=== PATIENT | male | born 1950 | race Caucasian/White ===

== ENCOUNTER 2017-03-05 18:18 | Inpatient (IN) | payer MEDICARE, MEDICAID ==
[~2017-03-05] VITALS: Ht 172.7 cm; Wt 117.9 kg
--- NOTE | 2017-03-05 18:40 | NUR ---
PT BIB FROM [facility] FOR AMS SINCE THIS AM. NOTED LETHARGIC. SON AT BS AND NOTED PT "GOES IN AND OUT"/SYNCOPE. MD AT BS FOR EVAL. VSS. SAFETY AND COMFORT MEASURES PROVIDED. IV ACCESS BULK PIGMENT REDUCER. SAFETY AND COMFORT MEASURES PROVIDED. WILL MONITOR.
--- NOTE | 2017-03-05 18:57 | NUR ---
ct called for stat ct, spoke with Deepali
[2017-03-05 19:02] LABS: BASOPHILS % (AUTO) 0.2 % (0.0-2.0); EOSINOPHILS # (AUTO) 0.2 /CMM (0.0-0.7); EOSINOPHILS % (AUTO) 2.1 % (0.0-6.0); HEMATOCRIT 27 % (39-51); HEMOGLOBIN 8.5 g/dL (13.5-17.5); LYMPHOCYTES # (AUTO) 0.8 /CMM (0.8-4.8); LYMPHOCYTES % (AUTO) 8.5 % (20.0-44.0); MEAN CORPUSCULAR HEMOGLOBIN 30 PG (26.0-33.0); MEAN CORPUSCULAR HGB CONC 32 g/dl (31.0-36.0); MEAN CORPUSCULAR VOLUME 94 fL (80-96); MONOCYTES # (AUTO) 0.3 /CMM (0.1-1.30); MONOCYTES % (AUTO) 3.5 % (2.0-12.0); NEUTROPHILS # (AUTO) 7.8 /CMM (1.8-8.9); NEUTROPHILS % (AUTO) 85.7 % (43.0-81.0); PLATELET COUNT (AUTO) 201 /CMM (150-450); RDW COEFFICIENT OF VARIATION 19.3 (11.5-15.0); RED BLOOD CELL COUNT(AUTO) 2.83 MIL/uL (4.5-6.0); WHITE BLOOD COUNT (AUTO) 9.1 K/uL (4.3-11.0)
[2017-03-05 19:18] LABS: INR 1.37 (0.87-1.13); PROTHROMBIN TIME 14.9 SECS (9.5-12.7)
[2017-03-05 19:21] LABS: ACETAMINOPHEN 7 ug/ml (10-30); ALCOHOL, BLOOD < 3 mg/dL (0-0); ASPARTATE AMINOTRANSFERASE 2 U/L (15-37); UREA NITROGEN, BLOOD 1 mg/dL (7-18)
[2017-03-05 19:23] LABS: TROPONIN I 0.034 ng/mL (0.00-0.056)
--- NOTE | 2017-03-05 19:23 | NUR ---
PT REPORT RECIVED FROM JENNIFER LOPEZ, PT IN BED JUST GOT BACK FROM CT, PT ON MONITOR, WILL CONTINUE TO MONITOR.
[2017-03-05 19:52] LABS: ALANINE AMINOTRANSFERASE 27 U/L (12-78); ALKALINE PHOSPHATASE 70 U/L (46-116); BILIRUBIN,DIRECT 0.1 mg/dL (0.0-0.2); BILIRUBIN,TOTAL 0.4 mg/dL (0.2-1.0); CALCIUM, SERUM 8.5 mg/dL (8.5-10.1); CARBON DIOXIDE 31 mmol/L (21-32); CHLORIDE 104 mmol/L (98-107); CREATININE 4.2 mg/dL (0.6-1.3); GLUCOSE 174 mg/dL (74-106); POTASSIUM 5.3 mmol/L (3.5-5.1); SODIUM SERUM 141 mmol/L (136-145); TOTAL PROTEIN, SERUM 7.3 g/dL (6.4-8.2)
[2017-03-05 19:53] LABS: SALICYLATE 2.3 mg/dL (2.8-20.0)
--- NOTE | 2017-03-05 20:07 | NUR ---
REPORT GIVEN TO BATSHEVA. AWAITING OK FROM DR. DAWSON TO TRANSFER TO FLOOR.
[2017-03-05] MEDS ORDERED: FUROSEMIDE 40 MG/4 ML VIAL IV ONE (20:30)
[2017-03-05] MEDS ORDERED: FUROSEMIDE 40 MG/4 ML VIAL ONE (20:59)
[2017-03-05] MEDS ORDERED: FUROSEMIDE 20 MG/2 ML VIAL IV SCH (21:00)
[2017-03-05] MEDS ORDERED: MAG HYDROX/AL HYDROX/SIMETH 30 ML UDC PO PRN (21:00)
[2017-03-05] MEDS ORDERED: HYDROCODONE/APAP 5/325MG 1 EACH TABLET PO PRN (21:00)
[2017-03-05] MEDS ORDERED: MAGNESIUM HYDROXIDE 30 ML UDC PO PRN (21:00)
[2017-03-05] MEDS ORDERED: ACETAMINOPHEN 325 MG TABLET PO PRN (21:00)
[2017-03-05] MEDS ORDERED: ONDANSETRON HCL/PF 4 MG/2 ML VIAL IVP PRN (21:00)
[2017-03-05 21:06] LABS: ABG OXYGEN SATURATION 98.4 % (92.0-98.5); ABG PCO2 61.3 mmHg (35.0-45.0); ABG PH 7.347 (7.350-7.450); ABG PO2 157.1 mmHg (75.0-100.0); AaDO2 57.6 mmHg; COHb 0.7 % (0.5-1.5); MetHb 0.4 % (0.0-1.5); O2Hb 97.3 % (94.0-97.0); SITE, ABG Left Radial
--- NOTE | 2017-03-05 21:06 | NUR ---
CALLED NURSING STAFF SCIENTIST TO UPGRADE TO JODY
--- NOTE | 2017-03-05 21:06 | NUR ---
PT IN BED, RT AT BEDSIDE TO DRAW ABG, PT HAS SWELLING AROUND HIS PENIS AND MD MADE AWARE, MD STATES DO NOT CHANGE OUT THE MALIK THEN AND DO NOT SEND URINE BECAUSE IT WILL BE DIRTY, WILL CONTINUE TO MONITOR.
[2017-03-05 22:00] VITALS: BP 98/61
[2017-03-06] VITALS: BP 94/64
[2017-03-06] MEDS ORDERED: BUMETANIDE INJ 2 MG in IV NS 0.9% 32 ML IV ONE (00:30)
[2017-03-06] MEDS ORDERED: BUMETANIDE INJ 0.25 MG/ML VIAL ONE (01:34)
--- NOTE | 2017-03-06 02:58 | NUR ---
RN NOTES ADMINISTERED BUMEX 1MG/4ML 2MG IN IV. NO ADVERSE EFFECT NOTED.
[2017-03-06 04:00] VITALS: BP 98/58
--- NOTE | 2017-03-06 05:00 | NUR ---
RN NOTES NOTED WITH VERY MINIMAL URINE OUTPUT IN THE BAG, FLUSHED FC WITH 60ML NS, URINE DRAINED 2000ML. NO PHYSICAL MANIFESTATION OF PAIN NOTED. WILL CONTINUE TO MONITOR.
--- NOTE | 2017-03-06 06:28 | NUR ---
RN CLOSING NOTES PATIENT COMFORTABLY SLEEPING IN BED, NO DISTRESS NOTED. MALIK CATH DRAINING URINE. NO PHYSICAL MANIFESTATION OF PAIN OR DISCOMFORT. WILL ENDORSE TO AM SHIFT FOR CONTINUITY OF CARE
[2017-03-06 07:31] LABS: BASOPHILS % (AUTO) 0.3 % (0.0-2.0); EOSINOPHILS # (AUTO) 0.5 /CMM (0.0-0.7); EOSINOPHILS % (AUTO) 3.8 % (0.0-6.0); HEMATOCRIT 27 % (39-51); HEMOGLOBIN 8.6 g/dL (13.5-17.5); LYMPHOCYTES # (AUTO) 0.8 /CMM (0.8-4.8); LYMPHOCYTES % (AUTO) 6.4 % (20.0-44.0); MEAN CORPUSCULAR HEMOGLOBIN 30 PG (26.0-33.0); MEAN CORPUSCULAR HGB CONC 32 g/dl (31.0-36.0); MEAN CORPUSCULAR VOLUME 95 fL (80-96); MONOCYTES # (AUTO) 0.8 /CMM (0.1-1.30); MONOCYTES % (AUTO) 6.6 % (2.0-12.0); NEUTROPHILS % (AUTO) 82.9 % (43.0-81.0); PLATELET COUNT (AUTO) 158 /CMM (150-450); RDW COEFFICIENT OF VARIATION 20.9 (11.5-15.0); RED BLOOD CELL COUNT(AUTO) 2.85 MIL/uL (4.5-6.0)
[2017-03-06 07:32] LABS: CREATININE 4.4 mg/dL (0.6-1.3); MAGNESIUM 1.8 mg/dL (1.8-2.4); POTASSIUM 5.9 mmol/L (3.5-5.1)
[2017-03-06 08:00] VITALS: BP 90/54
--- NOTE | 2017-03-06 08:00 | NUR ---
JODY/RN: INITIAL NOTES,AM RECEIVED REPORT FROM NIGHT NURSE. PT DROWSY, AWAKENS EASILY. ON SIMPLE MASK, TOLERATING WELL, NO ACUTE DISTRESS NOTED AT THIS TIME. PT ON TELE, SINUS. MALIK CATH IN PLACE, DRAINING URINE, CLOUDY. LEFT FA PIV PATENT AND INTACT, NO S/S OF INFECTION OR INFILTRATION NOTED. AWAITING FOR WOUND, DIETARY AND RENAL CONSULT. ALL NEEDS WILL BE MET, SAFETY MEASURES TAKEN, BED IN LOW POSITION, SIDE RAILS UP, CALL LIGHT WITHIN REACH. WILL CONTINUE CARE
[2017-03-06 08:27] LABS: PHOSPHORUS 8.5 mg/dL (2.5-4.9)
--- NOTE | 2017-03-06 08:27 | NUR ---
JODY/RN: CRITICAL LAB RECEIVED FOR PHOS 8.5. NOTIFIED, NO NEW ORDERS
[2017-03-06] MEDS: FUROSEMIDE 40 MG/4 ML VIAL IV SCH (08:55)
[2017-03-06] MEDS ORDERED: EPOETIN ALFA (10,000 UNIT) 10,000 UNIT/ML VIAL SQ ONE (10:00)
[2017-03-06] MEDS ORDERED: SODIUM POLYSTYRENE SULFONATE 15 G/60 ML BOTTLE PO ONE (10:00)
--- NOTE | 2017-03-06 10:30 | NUR ---
JODY/RN: AT BEDSIDE FOR EVAL. NEW ORDERS RECEIVED WILL FOLLOW THROUGH.
[2017-03-06] MEDS ORDERED: LIRA0.6P SQ (11:12)
[2017-03-06] MEDS ORDERED: HYDR-3024 PO (11:12)
[2017-03-06] MEDS ORDERED: NA P133E RC (11:12)
[2017-03-06] MEDS ORDERED: CALC-746 PO (11:12)
[2017-03-06] MEDS ORDERED: PANT40TA2 PO (11:12)
[2017-03-06] MEDS ORDERED: ALEN70TA45 PO (11:12)
[2017-03-06] MEDS ORDERED: ACET-73 PO (11:12)
[2017-03-06] MEDS ORDERED: ALBU90AE IH (11:12)
[2017-03-06] MEDS ORDERED: HYDR-552 PO (11:12)
[2017-03-06] MEDS ORDERED: CARV12.5 PO (11:12)
[2017-03-06] MEDS ORDERED: LACT1CAP89 PO (11:12)
[2017-03-06] MEDS ORDERED: MULT-213 PO (11:12)
[2017-03-06] MEDS ORDERED: ARGI1POW13 PO (11:12)
[2017-03-06] MEDS ORDERED: DIPH25CA83 PO (11:12)
[2017-03-06] MEDS ORDERED: FESO4TAB PO (11:12)
[2017-03-06] MEDS ORDERED: NIAC1000 PO (11:12)
[2017-03-06] MEDS ORDERED: RIVA10TA PO (11:12)
[2017-03-06] MEDS ORDERED: ZINC220C6 PO (11:12)
[2017-03-06] MEDS ORDERED: SIMV20TA6 PO (11:12)
[2017-03-06] MEDS ORDERED: CRAN450C PO (11:12)
[2017-03-06] MEDS ORDERED: ALLO100T PO (11:12)
[2017-03-06] MEDS ORDERED: TERA10CA4 PO (11:12)
[2017-03-06] MEDS ORDERED: BUME1TAB4 PO (11:12)
[2017-03-06] MEDS ORDERED: LOSA25TA13 PO (11:12)
[2017-03-06] MEDS ORDERED: MAGN400O6 PO (11:12)
[2017-03-06] MEDS ORDERED: ASPI-991 PO (11:12)
[2017-03-06] MEDS ORDERED: BISA10SU8 RC (11:12)
[2017-03-06] MEDS ORDERED: POLY17PO4 PO (11:12)
[2017-03-06] MEDS ORDERED: INSU100V3 SQ (11:15)
[2017-03-06] MEDS: IV 1/2NS 1000 ML 1,000 ML IV PRN (11:36)
[2017-03-06 12:00] VITALS: BP 92/59
--- NOTE | 2017-03-06 12:35 | NUR ---
WOUND CARE CONSULT PATIENT SEEN AND SKIN INTEGRITY ASSESSMENT DONE. SEE CRAFT SUPERINTENDENT ASSESSMENT IN [facility] FOR TODAY ALONG WITH ALL RECOMMENDATIONS. MD IN AGREEMENT WITH TREATMENT PLANS. PATIENT WITH DONNA AT 14, IS ABLE TO ASSIST WITH TURNING AND REPOSITIONING, HOWEVER DOES NEED ASSIST. RECOMMEND TURNING SCHED Q 2 HOURS PATIENT CONDITION PERMITS. RECOMMEND SARKIS MAX 2 BED WITH ETS AIR FOR SKIN MANAGEMENT AND TREATMENT. PT 2T 273 LBS. RECOMMEND BILATERAL HEEL FLOATING. PATIENT NOTED TO HAVE 3+ PITTING EDEMA TO BILATERAL LOWER EXTREMITIES AND SCROTAL REGION. PATIENT ALSO NOTED TO HAVE REDNESS AND FOUL ODOR TO THE FUNGAL RASHES TO THE BUTTOCKS,GROIN/ABDOMINAL AND BUTTOCKS REGIONS. ALL SKIN MANAGMENT AND TREATMENT PLANS DISCUSSED WITH NURSING AT THE BEDSIDE. ALL PRESSURE ULCER PREVENTION MEASURES NOTED TO BE IN PLACE PER CAREPLAN. CONTINUE USE OF Z GUARD CURRENTLY ORDERED. Addendum: 03/06/17 at 1240 by VIKAS COX WNDNU Amended: Links added.
--- NOTE | 2017-03-06 12:45 | NUR ---
JODY/RN: WOUND RN AT BEDSIDE. PT ASSESSED. MD ORDERS RECEIVED FOR WOUND CARE. WILL CONTINUE TO TURN AND REPOSITION Q 2 HOURS AND NEEDED.
[2017-03-06 12:51] LABS: CREATININE, URINE 44.2 MG/DL (30.0-125.0); URINE TOTAL PROTEIN 312.1 mg/dL (0-11.9)
[2017-03-06 16:00] VITALS: BP 91/55
[2017-03-06] MEDS: CLOTRIMAZOLE/BETAMETASONE DIPROPIONATE 15 GM TUBE TP SCH (16:44)
--- NOTE | 2017-03-06 18:20 | NUR ---
JODY/RN: JUST RECEIVED BERIMAX BED, WILL ENDORSE TO NIGHT NURSE TO PLACE PT ON BED FOR SKIN PROTECTION AND COMFORT
--- NOTE | 2017-03-06 19:10 | NUR ---
JODY/RN ENDING NOTES,AM REPORT WILL BE ENDORSED TO NIGHT NURSE FOR CONTINUATION OF CARE. PT ON NASAL CANULA, NO DISTRESS NOTED. PT CONTROLLED A.FIB ON TELE. WILL ENDORSE TO NIGHT NURSE TO PLACE PT ON BERIMAX BED DUE TO LATE DELIVERY. ALL NEEDS MET. SAFETY MEASURES TAKEN, WILL CONTINUE CARE. VSS
--- NOTE | 2017-03-06 19:40 | NUR ---
RN NOTES PT IS AWAKE ALERT ORIENTED X 2 WITH PERIODS OF CONFUSION RESPONSIVE TO TACTILE AND VERBAL STIMULI. WITH O2 2LPM VIA NC NO ACUTE RESP DISTRESS. SATING 100% REMAINED A-FIB HR 82 ON TELE MONITOR. IV SITE ON LFA G 20 INTACT AND PATENT STARTED TO RUN 1/2 NS @ 55 CC/HR NO INFILTRATION SHOWS. F/C DRAINED WITH RUBY COLOR URINE. TRANSFERRED PT TO BARIATRIC BED. KEPT PT CLEAN AND COMFORTABLE IN BED. WILL FREQ. MONITORED.
[2017-03-06 20:00] VITALS: BP 93/64
[2017-03-07] VITALS: BP 97/59
[2017-03-07 04:00] VITALS: BP 107/71
--- NOTE | 2017-03-07 07:05 | NUR ---
RN NOTES PT REMAINED IN STABLE CONDITION THROUGHOUT THE SHIFT,. MOPRE ALERT AND RESPONSIVE TODAY. COMPLIANT WITH CARE DENIES PAIN. NO ACUTE RESP DISTRESS. AFEBRILE. NO ASE FROM IV ATB. WITH ONGOING IVF TOLERATED WELL. KEPT PT CLEAN AND DRY. ENDORSED CONTINUITY OF CARE TO AM NURSE.
[2017-03-07 07:18] LABS: EOSINOPHILS # (AUTO) 0.3 /CMM (0.0-0.7); EOSINOPHILS % (AUTO) 2.8 % (0.0-6.0); HEMATOCRIT 27 % (39-51); HEMOGLOBIN 8.7 g/dL (13.5-17.5); LYMPHOCYTES # (AUTO) 0.7 /CMM (0.8-4.8); LYMPHOCYTES % (AUTO) 6.8 % (20.0-44.0); MEAN CORPUSCULAR HEMOGLOBIN 31 PG (26.0-33.0); MEAN CORPUSCULAR HGB CONC 32 g/dl (31.0-36.0); MEAN CORPUSCULAR VOLUME 96 fL (80-96); MONOCYTES # (AUTO) 0.5 /CMM (0.1-1.30); MONOCYTES % (AUTO) 5.3 % (2.0-12.0); NEUTROPHILS # (AUTO) 8.4 /CMM (1.8-8.9); NEUTROPHILS % (AUTO) 85.1 % (43.0-81.0); PLATELET COUNT (AUTO) 183 /CMM (150-450); RDW COEFFICIENT OF VARIATION 20.3 (11.5-15.0); RED BLOOD CELL COUNT(AUTO) 2.82 MIL/uL (4.5-6.0); WHITE BLOOD COUNT (AUTO) 9.9 K/uL (4.3-11.0)
--- NOTE | 2017-03-07 07:30 | NUR ---
JODY RN NOTE: RECEIVED PATIENT A&OX3. PT ON O2 2L VIA NC WITH NO RESPIRATORY DISTRESS OR SOB NOTED. LFA G 20 PATENT AND INTACT. ON TELE AFIB HR 89. DENIES PAIN. PITTING EDEMA ON LOWER BLE LEFT FOOT +3, RIGHT FOOT +4. FC DRAINING TO GRAVITY WITH YELLOW URINE. SPECIALTY MATTRESS NOTED. CARE PLAN REVIEWED WITH PATIENT. BED LOW, LOCKED WITH CALL LIGHT WITHIN REACH. ALL NEEDS MET AND ANTICIPATED. WILL CONT TO MONITOR
[2017-03-07 07:45] LABS: IRON, SERUM 40 ug/dl (50-175); TOTAL IRON BINDING CAPACITY 206 ug/dl (250-450)
[2017-03-07 07:46] LABS: ALBUMIN 1.9 g/dL (3.4-5.0); BILIRUBIN,TOTAL 0.4 mg/dL (0.2-1.0); CALCIUM, SERUM 7.8 mg/dL (8.5-10.1); CREATININE 4.7 mg/dL (0.6-1.3); MAGNESIUM 1.8 mg/dL (1.8-2.4)
[2017-03-07 07:49] LABS: PHOSPHORUS 8.1 mg/dL (2.5-4.9)
[2017-03-07 08:00] VITALS: BP 114/70
--- NOTE | 2017-03-07 09:15 | NUR ---
JODY RN NOTE: PT HELD DUE TO AWAITING DUPLEX VENOUS BLE.
[2017-03-07] MEDS: FUROSEMIDE 40 MG/4 ML VIAL IV SCH (09:56)
[2017-03-07] MEDS: HYDROGEL DRESSING 90 GM TUBE TP SCH (09:56)
[2017-03-07] MEDS: CLOTRIMAZOLE/BETAMETASONE DIPROPIONATE 15 GM TUBE TP SCH ×2 (09:58→16:55)
--- NOTE | 2017-03-07 10:55 | NUR ---
RN NOTES SPOKE WITH DR CERVANTES, PT UPDATES GIVEN, PER MD PT WILL POSSIBLY START ON HD PER NEPHRO. CLARIFIED WITH MD IF TO CONT IVF, NO DC ORDER GIVEN FOR NOW. LASIX DC'D PER MD ORDER. PENDING BLE VENOUS DOPPLER. WILL MONITOR PT
[2017-03-07 12:00] VITALS: BP 102/69
[2017-03-07 16:00] VITALS: BP 123/67
[2017-03-07] MEDS: IV 1/2NS 1000 ML 1,000 ML IV PRN (16:55)
--- NOTE | 2017-03-07 19:10 | NUR ---
RN NOTES PT RESTING IN BED COMFORTABLY, NO ACUTE CHANGE IN CONDITION. DENIES PAIN AT THIS TIME. ALL DUE MEDS GIVEN, NEEDS ATTENDED. KEPT PT CLEAN DRY AND COMFORTABLE. REPOSITIONED FOR COMFORT. MONITORED ACCORDINGLY ENDORSED TO NOC RN FOR CONTINUITY OF CARE
--- NOTE | 2017-03-07 19:40 | NUR ---
RN NOTES PT IS AWAKE ALERT ORIENTED X 2 - 3 WITH PERIODS OF CONFUSION RESPONSIVE TO TACTILE AND VERBAL STIMULI. WITH O2 2LPM VIA NC NO ACUTE RESP DISTRESS. SATING 100%, A-FIB WITH PVC'S WITH HR 85 ON TELE MONITOR. DENIES PAIN. IV SITE ON LFA G 20 INTACT AND PATENT RUN 1/2 NS @ 55 CC/HR NO INFILTRATION SHOWS. F/C DRAINED WITH RUBY COLOR URINE WITH A LITTLE BLOOD DUE TO PT IS ACCIDENTALLY PULLING OR TOUCHING HIS CATHETER, KEPT PT CLEAN AND COMFORTABLE IN BED. WILL CONTINUE TO MONITOR.
[2017-03-07 20:00] VITALS: BP 98/65
[2017-03-08] VITALS: BP 117/79
[2017-03-08 04:00] VITALS: BP 121/74
--- NOTE | 2017-03-08 06:59 | NUR ---
RN NOTES PT ASLEEP WELL NO SOB NOTED.REMAINED AOX 3. AFEBRILE. F/C INTACT AND PATENT DENIES PAIN. ALL DUE MEDICINE GIVEN IVF ONGOING. NO SIGNIFICANT CHANGE OF CONDITION. WILL ENDORSE CONTINUITY OF CARE.
[2017-03-08 07:14] LABS: EOSINOPHILS # (AUTO) 0.1 /CMM (0.0-0.7); EOSINOPHILS % (AUTO) 1.6 % (0.0-6.0); HEMATOCRIT 26 % (39-51); HEMOGLOBIN 8.4 g/dL (13.5-17.5); LYMPHOCYTES # (AUTO) 0.7 /CMM (0.8-4.8); MEAN CORPUSCULAR HEMOGLOBIN 31 PG (26.0-33.0); MEAN CORPUSCULAR HGB CONC 33 g/dl (31.0-36.0); MEAN CORPUSCULAR VOLUME 95 fL (80-96); MONOCYTES # (AUTO) 0.4 /CMM (0.1-1.30); MONOCYTES % (AUTO) 4.4 % (2.0-12.0); NEUTROPHILS # (AUTO) 7.3 /CMM (1.8-8.9); PLATELET COUNT (AUTO) 188 /CMM (150-450); RDW COEFFICIENT OF VARIATION 20.2 (11.5-15.0); RED BLOOD CELL COUNT(AUTO) 2.73 MIL/uL (4.5-6.0); WHITE BLOOD COUNT (AUTO) 8.5 K/uL (4.3-11.0)
--- NOTE | 2017-03-08 07:43 | NUR ---
RN NOTES PT RESTING COMFORTABLY IN BED A/O X2-3. ON 3 L NASAL CANNULA NO SOB NOTED. A FIB ON THE MONITOR HR 92. LFA IV SITE GAUGE 20 DRY AND INTACT. 1/2NS RUNNING AT 75ML/HR. MALIK OUTPUT LESS THAN 200ML, HEMATURIA NOTED. SIDE RAILS UPX3, BED LOCKED AND IN LOWEST POSITION, CALL LIGHT WITHIN REACH. WILL CONT TO MONITOR.
[2017-03-08 07:56] LABS: CALCIUM, SERUM 6.9 mg/dL (8.5-10.1); CREATININE 4.7 mg/dL (0.6-1.3); MAGNESIUM 1.6 mg/dL (1.8-2.4); PHOSPHORUS 7.8 mg/dL (2.5-4.9); POTASSIUM 4.2 mmol/L (3.5-5.1)
[2017-03-08 08:00] VITALS: BP 125/67
[2017-03-08] MEDS: CLOTRIMAZOLE/BETAMETASONE DIPROPIONATE 15 GM TUBE TP SCH ×2 (08:46→16:55)
[2017-03-08] MEDS: HYDROGEL DRESSING 90 GM TUBE TP PRN (08:47)
[2017-03-08] MEDS: HYDROGEL DRESSING 90 GM TUBE TP SCH (09:41)
[2017-03-08 12:00] VITALS: BP 121/74
[2017-03-08] MEDS ORDERED: BISACODYL SUPP (10 MG) 10 MG/SUPP.RECT SUPP.RECT RC PRN (13:00)
--- NOTE | 2017-03-08 13:00 | NUR ---
RN NOTES SPOKE WITH DR KUHN, CURRENT EVENTS REPORTED. PT UPDATE GIVEN, WITH HEMATURIA EPISODE, PENDING DIALYSIS CATH PLACEMENT PER NEPHRO. REPORTED MAG 1.6, NO NEW ORDERS GIVEN AT THIS TIME.
[2017-03-08 16:00] VITALS: BP 126/79
[2017-03-08] MEDS ORDERED: BUMETANIDE INJ 4 MG in IV D5W 24 ML IV ONE (16:00)
--- NOTE | 2017-03-08 16:00 | NUR ---
RN NOTES FC NOTED WITH HEMATURIA STILL, FC IRRIGATED, NOTED URINE STILL NOTED WITH HEMATURIA BUT ARBORIST REPRESENTATIVE COMPARED THIS MORNING.
--- NOTE | 2017-03-08 16:25 | NUR ---
RN NOTES RECEIVED REPORT FROM RN. PATIENT IS IN BED, ALERT AND ORIENTED X3. IV SITE IS LEAKING. MALIK IS DRAINING BLOOD. WILL CONTINUE TO MONITOR AND ASSESS PATIENT
[2017-03-08] MEDS ORDERED: BUMETANIDE INJ 4 MG in IV NS 0.9% 50 ML IV ONE (16:36)
[2017-03-08] MEDS ORDERED: BUMETANIDE INJ 4 MG in IV NS 0.9% 24 ML IV ONE (16:41)
[2017-03-08] MEDS: CARVEDILOL 12.5 MG TABLET PO SCH (16:55)
--- NOTE | 2017-03-08 17:15 | NUR ---
NEW IV STARTED. LEFT WRIST 22G. PATIENT TOLERATED PROCEDURE WELL
--- NOTE | 2017-03-08 18:34 | NUR ---
RN CLOSING NOTES PATIENT IS IN BED AWAKE ALERT AND ORIENTED TO NAME, PLACE AND TIME. PATIENT IS UNABLE AMBULATORY AND IN BED REST. 3LNC AND 100% OXYGEN SATURATION. NO SIGNS AND SYMPTOMS OF DISTRESS. DENIED PAIN. NEW IV SITE INSERTED, IV SITE IS INTACT AND PATENT; NO SIGNS AND SYMPTOMS OF REDNESS OR INFLAMMATION. OLD IV REMOVED. IV SITE CURRENTLY INFUSING 5,L/HR BUMEX. BED IN LOW POSITION, LOCKED AND TWO SIDE RAILS ARE UP. PATIENT KEPT CLEAN AND DRY AND ALL NURSING CARE ANTICIPATED. PATIENT REMAINED SAFE WITH NO CHANGE OF CONDITION. WILL ENDORSE TO PLASMA CENTER TECHNICIAN NURSE.
--- NOTE | 2017-03-08 19:30 | NUR ---
RN NOTES: -RECEIVED PATIENT LYING COMFORTABLY IN BED IN BED IN SEMI FOWLERS POSITION,ON 02 AT 3L/MIN, IV CANNULA; INTACT ON LH G#22,STILL WITH HEMATURIA, MALIK CATH DRAINING WELL,FALL, SAFETY AND ASPIRATION PRECAUTION OBSERVE, CALL LIGHT WITHIN EASY REACH,SIDE RAILS UPX3,BUMEX ONGOING AT 5ML/HR,CALL LIGHT WITHIN EASY REACH.
[2017-03-08 20:00] VITALS: BP 105/60
--- NOTE | 2017-03-08 20:12 | NUR ---
RN NOTES; DOPPLER/MAPPING OF BLE DONE BY SAM, PATIENT WAS COOPERATIVE.AWAITING FOR THE RESULT.
--- NOTE | 2017-03-08 21:00 | NUR ---
RN NOTES: TURNING AND REPOSITIONING DONE, CLEAN AND CHANGE, KEPT COMFORTABLE IN BED, CALL LIGHT WITHIN EASY REACH.
[2017-03-08] MEDS: SIMVASTATIN 20 MG TABLET PO SCH (22:35)
--- NOTE | 2017-03-08 22:52 | NUR ---
RN NOTES: ASLEEP AT SHORT INTERVAL, KEPT ON CLOSE WATCH,ON TELE MONITOR A.FIB-RATE:85-86,NO SIGN OF RESPIRATORY DISTRESS NOTED.
[2017-03-09] VITALS: BP 104/73
[2017-03-09 04:00] VITALS: BP 121/78
--- NOTE | 2017-03-09 06:49 | NUR ---
RN NOTES: DIAPER CHANGE, POSITION CHANGE,NO PAIN OR DISCOMFORT NOTED, ORIENTED TO UNIT AND STAFF, HE HAS PERIODS OF CONFUSION AND FORCEFULNESS,ON MONITOR A.FIB WITH PVC RATE=98, KEEP ON CLOSE WATCH, HIGH RISK FOR FALL, ENDORSED TO NEXT SHIFT FOR CONTINUITY OF CARE, CALL LIGHT WITHIN EASY REACH.
--- NOTE | 2017-03-09 07:28 | NUR ---
RN INITIAL NOTE REPORT RECEIVED FROM JEY PM SHIFT FOR STACY. PT NC 3L. TELE AFIB, PVC 93. A/O X2. FC INTACT. L WRIST #22 G PATENT, FLUSHED AND INTACT. WILL CONTINUE TO MONITOR CLOSELY. ALL SAFETY MEASURES IN PLACE.
[2017-03-09 07:37] LABS: BASOPHILS % (AUTO) 0.5 % (0.0-2.0); EOSINOPHILS # (AUTO) 0.9 /CMM (0.0-0.7); EOSINOPHILS % (AUTO) 10.4 % (0.0-6.0); HEMATOCRIT 26 % (39-51); HEMOGLOBIN 8.5 g/dL (13.5-17.5); LYMPHOCYTES # (AUTO) 0.9 /CMM (0.8-4.8); LYMPHOCYTES % (AUTO) 10.2 % (20.0-44.0); MEAN CORPUSCULAR HEMOGLOBIN 31 PG (26.0-33.0); MEAN CORPUSCULAR HGB CONC 33 g/dl (31.0-36.0); MEAN CORPUSCULAR VOLUME 95 fL (80-96); MONOCYTES # (AUTO) 0.6 /CMM (0.1-1.30); MONOCYTES % (AUTO) 6.9 % (2.0-12.0); NEUTROPHILS # (AUTO) 6.2 /CMM (1.8-8.9); PLATELET COUNT (AUTO) 211 /CMM (150-450); RDW COEFFICIENT OF VARIATION 21.2 (11.5-15.0); RED BLOOD CELL COUNT(AUTO) 2.75 MIL/uL (4.5-6.0); WHITE BLOOD COUNT (AUTO) 8.6 K/uL (4.3-11.0)
[2017-03-09 07:48] LABS: ALBUMIN 2.1 g/dL (3.4-5.0); BILIRUBIN,TOTAL 0.3 mg/dL (0.2-1.0); CALCIUM, SERUM 7.2 mg/dL (8.5-10.1); CREATININE 4.7 mg/dL (0.6-1.3); MAGNESIUM 1.6 mg/dL (1.8-2.4); PHOSPHORUS 7.6 mg/dL (2.5-4.9); POTASSIUM 3.9 mmol/L (3.5-5.1); TOTAL PROTEIN, SERUM 7.1 g/dL (6.4-8.2)
[2017-03-09 08:00] VITALS: BP 94/53
[2017-03-09] MEDS: ASPIRIN EC 81 MG TABLET.DR PO SCH (08:54)
[2017-03-09] MEDS: ZINC SULFATE 220 MG CAPSULE PO SCH (08:54)
[2017-03-09] MEDS: Z GUARD REMEDY 2 OZ OINT TP PRN (08:56)
[2017-03-09] MEDS: CLOTRIMAZOLE/BETAMETASONE DIPROPIONATE 15 GM TUBE TP SCH ×2 (08:56→17:37)
[2017-03-09] MEDS: HYDROGEL DRESSING 90 GM TUBE TP PRN (08:56)
[2017-03-09] MEDS: CARVEDILOL 12.5 MG TABLET PO SCH ×2 (08:57→17:36)
[2017-03-09] MEDS: HYDROGEL DRESSING 90 GM TUBE TP SCH (09:00)
[2017-03-09 12:00] VITALS: BP 114/63
[2017-03-09 16:00] VITALS: BP_SYST 107; BP_DIAS 70; BP_DIAS 71
--- NOTE | 2017-03-09 19:35 | NUR ---
RN CLOSING NOTE REPORT GIVEN TO MILAN RN PM SHIFT FOR STACY. PT NC 3L. TELE AFIB, PVC THROUGH SHIFT. A/O X2. FC INTACT. L WRIST #22 G PATENT AND INTACT. ALL SAFETY MEASURES IN PLACE. AWAITING IF PT WILL START HD TOMORROW.
[2017-03-09 20:00] VITALS: BP 121/83
--- NOTE | 2017-03-09 20:00 | NUR ---
RN NOTES RECEIVED PATIENT AWAKE IN BED WITH NO RESPIRATORY DISTRESS OR SHORTNESS OF BREATH. BREATHING EVEN AND UNLABORED. ON 02 AT 3LPM TOLERATING WELL. ALERT AND RESPONSIVE WITH CONFUSION. FC IN PLACE DRAINING CLEAR YELLOW WITH NO FOUL ODOR URINE. NO PHYSICAL MANIFESTATION OF PAIN OR DISCOMFORT. KEPT CLEAN AND DRY. WILL CONTINUE TO MONITOR.
[2017-03-09] MEDS: SIMVASTATIN 20 MG TABLET PO SCH (22:44)
[2017-03-10] VITALS (9 sets, daily range): BP systolic 98–115; BP diastolic 50–77
--- NOTE | 2017-03-10 02:38 | NUR ---
RN NOTES NOTED IN CARDIAC MONITORING EPISODE OF V-TACH HR 131BPM. CHECKED PATIENT. ALERT AND RESPONSIVE. VERBALLY ANSWERS QUESTIONS "ARE YOU IN PAIN" DENIES PAIN. CHECKED VITAL SIGNS HR78, BP 116/74 TEMP98.2, RR 18. NO PHYSICAL MANIFESTATION OF PAIN OR DISCOMFORT, RELAX FACIAL EXPRESSION. NO RESPIRATORY DISTRESS OR SHORTNESS OF BREATH. BREATHING EVEN AND UNLABORED. 02 SAT 98% AT 3LPM 02. FC DRAINING CLEAR YELLOW WITH NO FOUL ODOR URINE. WILL CONTINUE TO MONITOR.
[2017-03-10 07:01] LABS: BASOPHILS % (AUTO) 0.4 % (0.0-2.0); EOSINOPHILS # (AUTO) 0.8 /CMM (0.0-0.7); EOSINOPHILS % (AUTO) 9.2 % (0.0-6.0); HEMATOCRIT 28 % (39-51); HEMOGLOBIN 9.1 g/dL (13.5-17.5); LYMPHOCYTES # (AUTO) 0.7 /CMM (0.8-4.8); LYMPHOCYTES % (AUTO) 8.4 % (20.0-44.0); MEAN CORPUSCULAR HEMOGLOBIN 31 PG (26.0-33.0); MEAN CORPUSCULAR HGB CONC 33 g/dl (31.0-36.0); MEAN CORPUSCULAR VOLUME 95 fL (80-96); MONOCYTES # (AUTO) 0.5 /CMM (0.1-1.30); MONOCYTES % (AUTO) 5.4 % (2.0-12.0); NEUTROPHILS # (AUTO) 6.6 /CMM (1.8-8.9); NEUTROPHILS % (AUTO) 76.6 % (43.0-81.0); PLATELET COUNT (AUTO) 211 /CMM (150-450); RED BLOOD CELL COUNT(AUTO) 2.94 MIL/uL (4.5-6.0); WHITE BLOOD COUNT (AUTO) 8.6 K/uL (4.3-11.0)
--- NOTE | 2017-03-10 07:08 | NUR ---
RN CLOSING NOTES RESTING COMFORTABLY IN BED WITH NO RESPIRATORY DISTRESS OR SHORTNESS OF BREATH. BREATHING EVEN AND UNLABORED. VITAL SIGNS WNL. NO COMPLAINT OF PAIN OR DISCOMFORT. ALERT AND RESPONSIVE WITH CONFUSION. WILL ENDORSE TO AM SHIFT FOR CONTINUITY OF CARE.
[2017-03-10 07:40] LABS: CALCIUM, SERUM 7.2 mg/dL (8.5-10.1); CREATININE 4.3 mg/dL (0.6-1.3); MAGNESIUM 1.5 mg/dL (1.8-2.4); PHOSPHORUS 7.8 mg/dL (2.5-4.9)
--- NOTE | 2017-03-10 07:57 | NUR ---
AM RN NOTES RECEIVED PT IN STABLE CONDITION, NO SOB OR DISTRESS NOTED, NO PAIN OR DISCOMFORT, WILL MONITOR.
[2017-03-10] MEDS: ZINC SULFATE 220 MG CAPSULE PO SCH (08:33)
[2017-03-10] MEDS: ASPIRIN EC 81 MG TABLET.DR PO SCH (08:33)
[2017-03-10] MEDS: CARVEDILOL 12.5 MG TABLET PO SCH ×2 (08:34→16:15)
[2017-03-10] MEDS: HYDROGEL DRESSING 90 GM TUBE TP SCH (08:35)
[2017-03-10] MEDS: CLOTRIMAZOLE/BETAMETASONE DIPROPIONATE 15 GM TUBE TP SCH ×2 (08:36→16:17)
--- NOTE | 2017-03-10 08:47 | NUR ---
TEL NURSE ,patient had a 20 V TACH in a roll ,left message Epic group waiting for returning call back asymtomatic, vitals stable no signs of distress noted at present time
--- NOTE | 2017-03-10 08:50 | NUR ---
TEL NURSE, Jose Eckert called in and all lab results given including Vtach MAG level is 1.5 orders carred out will continue to assess and evaluate
[2017-03-10] MEDS ORDERED: BUMETANIDE INJ 8 MG in IV D5W 48 ML IV ONE (09:00)
[2017-03-10] MEDS ORDERED: Magnesium 1GM/D5W 100ML PREMIX PIGGYBACK IV ONE (09:30)
[2017-03-10] MEDS: Magnesium 1GM/D5W 100ML PREMIX 100 ML IV SCH ×2 (10:41→11:43)
--- NOTE | 2017-03-10 12:43 | NUR ---
pt on bumex ivpb, tolerates well, will continue to monitor.
[2017-03-10 14:27] LABS: BASOPHILS % (AUTO) 0.6 % (0.0-2.0); EOSINOPHILS # (AUTO) 0.6 /CMM (0.0-0.7); EOSINOPHILS % (AUTO) 7.8 % (0.0-6.0); HEMATOCRIT 26 % (39-51); HEMOGLOBIN 8.3 g/dL (13.5-17.5); LYMPHOCYTES # (AUTO) 0.7 /CMM (0.8-4.8); LYMPHOCYTES % (AUTO) 10.3 % (20.0-44.0); MEAN CORPUSCULAR HEMOGLOBIN 31 PG (26.0-33.0); MEAN CORPUSCULAR HGB CONC 32 g/dl (31.0-36.0); MEAN CORPUSCULAR VOLUME 95 fL (80-96); MONOCYTES # (AUTO) 0.5 /CMM (0.1-1.30); MONOCYTES % (AUTO) 7.2 % (2.0-12.0); NEUTROPHILS # (AUTO) 5.4 /CMM (1.8-8.9); NEUTROPHILS % (AUTO) 74.1 % (43.0-81.0); PLATELET COUNT (AUTO) 223 /CMM (150-450); RDW COEFFICIENT OF VARIATION 20.9 (11.5-15.0); RED BLOOD CELL COUNT(AUTO) 2.71 MIL/uL (4.5-6.0); WHITE BLOOD COUNT (AUTO) 7.2 K/uL (4.3-11.0)
[2017-03-10] MEDS: SOD FERRIC GLUC 125 MG in IV NS 0.9% 100 ML IV SCH (14:45)
--- NOTE | 2017-03-10 18:23 | NUR ---
PT IN STABLE CONDITION, NO SOB OR DISTRESS NOTED, BUMEX IV IS RUNNING PER ORDER, V/S ARE MONITORED FREQUENTLY, TOLERATES WELL, PT CHANGED AND REPOSITIONED Q2 HR AND PRN, WOUND TX 'S ARE DONE, KEPT CLEAN AND DRY, WILL INDORSE TO NEXT SHIFT FOR STACY.
--- NOTE | 2017-03-10 20:00 | NUR ---
tele/rn opening notes patient in bed. awake x2. Able to verbalize needs. Tele reading at afib 86. monitor for any s/s of distress. received report from am rn regarding plam of care. bed in lock position. require turning and reposition. will continue to monitor. provide fluids. attend to needs at all times.
[2017-03-10] MEDS: SIMVASTATIN 20 MG TABLET PO SCH (21:24)
--- NOTE | 2017-03-10 23:34 | NUR ---
tele/rn notes patient observed having hard time sleeping. Requested for sleeping pill. observe dry skin provided and provided lotion for comfort and relief. will give ambien 5 mg po for bed time.
[2017-03-10] MEDS: ZOLPIDEM TARTRATE 5 MG TABLET PO PRN (23:37)
[2017-03-11] VITALS (7 sets, daily range): BP systolic 104–118; BP diastolic 54–77
--- NOTE | 2017-03-11 06:12 | NUR ---
tele/rn closing notes patient in bed, tele reading at afib 86. Can verbalize needs, require repositioning for comfort. no s/s of discomfort. alertx2. left hand gauge 22 insertr.Will endorse to am rn regarding continuity o fare.Will endorse to am rn
[2017-03-11 07:15] LABS: BASOPHILS # (AUTO) 0.1 /CMM (0.0-0.2); BASOPHILS % (AUTO) 0.7 % (0.0-2.0); EOSINOPHILS # (AUTO) 1.2 /CMM (0.0-0.7); EOSINOPHILS % (AUTO) 12.7 % (0.0-6.0); HEMATOCRIT 29 % (39-51); HEMOGLOBIN 9.3 g/dL (13.5-17.5); LYMPHOCYTES % (AUTO) 11.3 % (20.0-44.0); MEAN CORPUSCULAR HEMOGLOBIN 31 PG (26.0-33.0); MEAN CORPUSCULAR HGB CONC 33 g/dl (31.0-36.0); MEAN CORPUSCULAR VOLUME 95 fL (80-96); MONOCYTES # (AUTO) 0.7 /CMM (0.1-1.30); MONOCYTES % (AUTO) 8.1 % (2.0-12.0); NEUTROPHILS # (AUTO) 6.1 /CMM (1.8-8.9); NEUTROPHILS % (AUTO) 67.2 % (43.0-81.0); PLATELET COUNT (AUTO) 209 /CMM (150-450); RDW COEFFICIENT OF VARIATION 20.3 (11.5-15.0); RED BLOOD CELL COUNT(AUTO) 3.02 MIL/uL (4.5-6.0); WHITE BLOOD COUNT (AUTO) 9.1 K/uL (4.3-11.0)
[2017-03-11 07:25] LABS: ALBUMIN 2.2 g/dL (3.4-5.0); BILIRUBIN,TOTAL 0.4 mg/dL (0.2-1.0); CALCIUM, SERUM 7.4 mg/dL (8.5-10.1); CREATININE 4.1 mg/dL (0.6-1.3); MAGNESIUM 1.8 mg/dL (1.8-2.4); PHOSPHORUS 7.4 mg/dL (2.5-4.9); POTASSIUM 3.9 mmol/L (3.5-5.1); TOTAL PROTEIN, SERUM 7.2 g/dL (6.4-8.2)
--- NOTE | 2017-03-11 07:31 | NUR ---
AM RN NOTE Received patient sleeping comfortably in his bed, no acute distress noted. On O2 3L/min via NC. Resp even and non-labored. On tele monitor, A-fib 80's. IV site intact and patent. F/C intact. Bed in low locked position. Will continue to monitor.
[2017-03-11] MEDS: HYDROGEL DRESSING 90 GM TUBE TP SCH (08:41)
[2017-03-11] MEDS: CLOTRIMAZOLE/BETAMETASONE DIPROPIONATE 15 GM TUBE TP SCH ×2 (08:41→16:27)
[2017-03-11] MEDS: ZINC SULFATE 220 MG CAPSULE PO SCH (08:43)
[2017-03-11] MEDS: ASPIRIN EC 81 MG TABLET.DR PO SCH (08:43)
[2017-03-11] MEDS: CARVEDILOL 12.5 MG TABLET PO SCH ×2 (08:44→16:28)
[2017-03-11] MEDS: SOD FERRIC GLUC 125 MG in IV NS 0.9% 100 ML IV SCH (14:07)
[2017-03-11] MEDS: SEVELAMER CARBONATE 0.8 GM POWD.PACK GT SCH (17:44)
--- NOTE | 2017-03-11 18:20 | NUR ---
AM RN NOTE Pt resting in his bed, no acute distress noted. All needs met and attended in timely manner. Will endorse care to next shift.
--- NOTE | 2017-03-11 19:20 | NUR ---
TELE/RN NOTES MALIK CATH INTACT WITH RED URINE, NO CLOTS VISIBLE. NAD.
--- NOTE | 2017-03-11 19:20 | NUR ---
TELE/RN NOTES RECEIVED PT IN STABLE CONDITION. AWAKE, A&OX 2 (NAME AND PLACE). O2 3L NC, NO SOB NOTED. WATCHING TV. AFIB WITH PVC, HR 82. NO DISTRESS NOTED.. R HAND IV # 24G HL, FLUSHED AND PATENT, SITE CDI. MALIK CATH INTACT WITH DARK RUBY. PATIENT MADE AWARE OF PLAN OF CARE INCLUDING BLOOD DRAWN IN AM AND VERBALIZED UNDERSTANDING. WILL MAINTAIN SKIN INTEGRITY, TURN AND REPOSITION Q2H. APPEARS COMFORTABLE AND DENIES PAIN. BED AT LOWEST POSITION AND LOCKED, HOB ELEVATED. SIDE TABLE AND CALL HERNANDEZ WITHIN REACH. BED ALARM ON FOR SAFETY MEASURES. WILL CONTINUE TO MONITOR. Addendum: 03/11/17 at 2158 by ISA CHAMBERLAIN RN MALIK CATH INTACT WITH RED URINE, NO CLOTS VISIBLE. NO DISTRESS NOTED.
[2017-03-11] MEDS: SIMVASTATIN 20 MG TABLET PO SCH (21:22)
[2017-03-11] MEDS ORDERED: Z GUARD REMEDY 4 OZ OINT TP ONE (22:18)
[2017-03-11] MEDS: Z GUARD REMEDY 2 OZ OINT TP PRN (23:06)
[2017-03-12] VITALS (7 sets, daily range): BP systolic 97–110; BP diastolic 48–77
--- NOTE | 2017-03-12 06:30 | NUR ---
TELE/RN NOTES NO SIGNIFICANT CHANGES. A&OX2, FORGETFUL. BREATHING EVENLY ON O2 3L VIA NC. MALIK CATH INTACT, DRAINING 650ML OF HEMATURIA. BM X1. TURNED AND REPOSITIONED Q2H. NO COMPLAINTS MADE. SLEPT AT LEAST 6 HRS. SAFETY MAINTAINED. ALL NEEDS MET. WILL ENDORSED TO AM SHIFT FOR CONTINUITY OF CARE.
[2017-03-12 07:04] LABS: BASOPHILS % (AUTO) 0.4 % (0.0-2.0); EOSINOPHILS # (AUTO) 1.1 /CMM (0.0-0.7); EOSINOPHILS % (AUTO) 13.8 % (0.0-6.0); HEMATOCRIT 28 % (39-51); HEMOGLOBIN 9.1 g/dL (13.5-17.5); LYMPHOCYTES # (AUTO) 0.7 /CMM (0.8-4.8); LYMPHOCYTES % (AUTO) 8.6 % (20.0-44.0); MEAN CORPUSCULAR HEMOGLOBIN 31 PG (26.0-33.0); MEAN CORPUSCULAR HGB CONC 33 g/dl (31.0-36.0); MEAN CORPUSCULAR VOLUME 94 fL (80-96); MONOCYTES # (AUTO) 0.5 /CMM (0.1-1.30); MONOCYTES % (AUTO) 6.3 % (2.0-12.0); NEUTROPHILS # (AUTO) 5.9 /CMM (1.8-8.9); NEUTROPHILS % (AUTO) 70.9 % (43.0-81.0); PLATELET COUNT (AUTO) 211 /CMM (150-450); RDW COEFFICIENT OF VARIATION 21.2 (11.5-15.0); RED BLOOD CELL COUNT(AUTO) 2.94 MIL/uL (4.5-6.0); WHITE BLOOD COUNT (AUTO) 8.3 K/uL (4.3-11.0)
--- NOTE | 2017-03-12 07:51 | NUR ---
DECAY CONTROL OPERATOR NOTE RECEIVED PT IN STABLE CONDITION. AWAKE, ALERT , O2 3L NC, NO SOB NOTED. WATCHING TV. AFIB WITH PVC, HR 65. NO DISTRESS NOTED.. R HAND IV # 24G HL, FLUSHED AND PATENT, . MALIK CATH INTACT WITH DARK RUBY.PLAN OF CARE DISCUSSED WITH PATIENT IAND VERBALIZED UNDERSTANDING. WILL MAINTAIN SKIN INTEGRITY, TURN AND REPOSITION Q2H. APPEARS COMFORTABLE AND DENIES PAIN. BED AT LOWEST POSITION AND LOCKED, HOB ELEVATED. CALL HERNANDEZ WITHIN REACH. BED ALARM ROLL TENDER LIGHT WITHIN REACH ,
[2017-03-12 07:56] LABS: CALCIUM, SERUM 7.4 mg/dL (8.5-10.1); CREATININE 3.7 mg/dL (0.6-1.3); MAGNESIUM 1.7 mg/dL (1.8-2.4); PHOSPHORUS 6.8 mg/dL (2.5-4.9); POTASSIUM 3.5 mmol/L (3.5-5.1)
[2017-03-12] MEDS: ZINC SULFATE 220 MG CAPSULE PO SCH (08:38)
[2017-03-12] MEDS: ASPIRIN EC 81 MG TABLET.DR PO SCH (08:38)
[2017-03-12] MEDS: SEVELAMER CARBONATE 0.8 GM POWD.PACK GT SCH ×3 (08:38→17:18)
[2017-03-12] MEDS: CARVEDILOL 12.5 MG TABLET PO SCH ×2 (08:38→16:13)
[2017-03-12] MEDS: CLOTRIMAZOLE/BETAMETASONE DIPROPIONATE 15 GM TUBE TP SCH ×2 (08:39→16:13)
[2017-03-12] MEDS: HYDROGEL DRESSING 90 GM TUBE TP SCH (08:39)
--- NOTE | 2017-03-12 10:50 | NUR ---
PLANNING DIRECTOR NOTE SPOKE WITH DR CERVANTES NOTIFIED THAT PATIENT HAS OCCASIONAL COUGH PRODUCTIVE WITH WHITE SECRETION AND RT UPPER ARM WITH REDNESS, STATED THAT WILL CHECK IT OUT, AWARE THAT BUN 84 , CALLED TO SISTER AUREA NOTIFIED THAT PATIENT REFUSING HD AT THIS TIMER ,STATED THAT WILL TALK TO DPOA AND DECIDE IF HE NEED COMFORT MEASURE Addendum: 03/12/17 at 1055 by SARAH CANNON RN DR CERVANTES AWARE ABOUT PATIENT CONDITION
--- NOTE | 2017-03-12 13:40 | NUR ---
HEARING STENOGRAPHER NOTE DR MAURO SPOKE WITH PATIENT AND DPOA JOSE LUIS ABOUT HD , PATIENT AND DPOA JOSE LUIS AGREE TO PLACE HD CATH , , TELE PHONE CONSENT DONE
[2017-03-12] MEDS: SOD FERRIC GLUC 125 MG in IV NS 0.9% 100 ML IV SCH (14:11)
--- NOTE | 2017-03-12 16:55 | NUR ---
RANGE MASTER NOTE TELEPHONE CONSENT FOR [facility]ATH OBTAINED ,SPOKE WITH MARTA AMAYA
--- NOTE | 2017-03-12 18:22 | NUR ---
telegraph office route aide note having dinner, able to eat self, not in acute distress ,will cont to monitor closely
--- NOTE | 2017-03-12 19:30 | NUR ---
RN NOTE; RECEIVED PT SITTING IN BED AWAKE AND RESPONSIVE. BREATHING EVENLY. NO SOB. NAD. SKIN WARM AND DRY. HEART MONITOR IN PLACE READING A. FIB. NO C/O PAIN OR DISCOMFORT. NPO STATUS POST [place] WAS EXPLAINED TO THE PT FOR PROCEDURE IN AM W/ UNDERSTANDING. NEEDS ATTENDED .CALL LIGHT WITHIN REACH . WILL CONT TO MONITOR
[2017-03-12] MEDS: SIMVASTATIN 20 MG TABLET PO SCH (21:41)
[2017-03-13] VITALS: BP 101/56
--- NOTE | 2017-03-13 02:08 | NUR ---
NOTED W/ EPISODE OF V.TACH BY OLD TESTAMENT PROFESSOR. RAN TO THE PT'S ROOM. FOUND PT RESTING COMFORTABLY IN BED AWAKE AND RESPONSIVE W/ HIS HANDS IN HIS GOWN TOUCHING THE LEADS. NO ACUTE DISTRESS. ASKED PT HOW HE'S DOING AND HE RESPONDED HE'S DOING FINE. DENIED ANY PAIN, OR DISCOMFORT. DENIED CHEST PAIN. NO OTHER COMPLAIN. VS:WNL. WILL CONT TO MONITOR.
[2017-03-13 04:00] VITALS: BP 112/55
[2017-03-13 07:16] LABS: BASOPHILS # (AUTO) 0.1 /CMM (0.0-0.2); BASOPHILS % (AUTO) 0.7 % (0.0-2.0); EOSINOPHILS # (AUTO) 1.4 /CMM (0.0-0.7); EOSINOPHILS % (AUTO) 17.2 % (0.0-6.0); HEMATOCRIT 26 % (39-51); HEMOGLOBIN 8.7 g/dL (13.5-17.5); LYMPHOCYTES # (AUTO) 0.7 /CMM (0.8-4.8); LYMPHOCYTES % (AUTO) 8.5 % (20.0-44.0); MEAN CORPUSCULAR HEMOGLOBIN 31 PG (26.0-33.0); MEAN CORPUSCULAR HGB CONC 33 g/dl (31.0-36.0); MEAN CORPUSCULAR VOLUME 96 fL (80-96); MONOCYTES # (AUTO) 0.6 /CMM (0.1-1.30); MONOCYTES % (AUTO) 7.2 % (2.0-12.0); NEUTROPHILS # (AUTO) 5.3 /CMM (1.8-8.9); NEUTROPHILS % (AUTO) 66.4 % (43.0-81.0); PLATELET COUNT (AUTO) 208 /CMM (150-450); RDW COEFFICIENT OF VARIATION 21.3 (11.5-15.0); RED BLOOD CELL COUNT(AUTO) 2.77 MIL/uL (4.5-6.0)
--- NOTE | 2017-03-13 07:25 | NUR ---
RN NOTE; PT IN BED AWAKE AND RESPONSIVE. BREATHING EVENLY. NO SOB.NAD. A FIB ON TELE MONITOR. REMAINED STABLE, NPO FOR PERMACATH PLACEMENT TODAY. NEEDS ATTENDED. CALL LIGHT WITHIN REACH. REPORT GIVEN TO CORKY LOPEZ FOR STACY,
[2017-03-13 07:27] LABS: INR 1.17 (0.87-1.13); PROTHROMBIN TIME 12.6 SECS (9.5-12.7)
--- NOTE | 2017-03-13 07:36 | NUR ---
RN OPEN NOTES RECEIVED REPORT FROM OPEN HEARTH MELTER NURSE. WILL CONTINUE TO ASSESS AND MONITOR PATIENT THROUGHOUT MY SHIFT
[2017-03-13 07:53] LABS: CALCIUM, SERUM 7.5 mg/dL (8.5-10.1); CREATININE 3.3 mg/dL (0.6-1.3); MAGNESIUM 1.7 mg/dL (1.8-2.4); PHOSPHORUS 6.3 mg/dL (2.5-4.9); POTASSIUM 3.4 mmol/L (3.5-5.1)
[2017-03-13 08:00] VITALS: BP 99/64
[2017-03-13] MEDS: SEVELAMER CARBONATE 0.8 GM POWD.PACK GT SCH ×3 (08:00→17:32)
[2017-03-13] MEDS: ZINC SULFATE 220 MG CAPSULE PO SCH (08:40)
[2017-03-13] MEDS: ASPIRIN EC 81 MG TABLET.DR PO SCH (08:40)
[2017-03-13] MEDS: CARVEDILOL 12.5 MG TABLET PO SCH ×2 (08:40→16:31)
[2017-03-13] MEDS: HYDROGEL DRESSING 90 GM TUBE TP SCH (08:41)
[2017-03-13] MEDS: CLOTRIMAZOLE/BETAMETASONE DIPROPIONATE 15 GM TUBE TP SCH ×2 (08:41→17:32)
[2017-03-13 12:00] VITALS: BP 98/71
[2017-03-13] MEDS ORDERED: HEPARIN SODIUM, PORCINE 1,000 UNIT/ML VIAL ONE (13:50)
[2017-03-13] MEDS ORDERED: LIDOCAINE 0.5% HCL 50 ML VIAL ONE (13:51)
[2017-03-13] MEDS: SOD FERRIC GLUC 125 MG in IV NS 0.9% 100 ML IV SCH (15:15)
--- NOTE | 2017-03-13 15:50 | NUR ---
PATIENT IS OFF THE FLOOR AT OPERATION ROOM FOR PER[facility]ATH INSERTION
--- NOTE | 2017-03-13 16:30 | NUR ---
DIALYSIS NURSE CALLED IN TO CONFIRM DIALYSIS LATER ON TODAY AT 1900
--- NOTE | 2017-03-13 16:31 | NUR ---
HOLDING BP MEDS DUE TO DIALYSIS PENDING FOR 190
--- NOTE | 2017-03-13 17:05 | NUR ---
PATIENT RETURNED TO THE FLOOR FROM OR
[2017-03-13] MEDS ORDERED: ANESTHESIA TRAY IN PYXIS 1 EA TRAY MC ONE (17:08)
--- NOTE | 2017-03-13 17:32 | NUR ---
RENESTERELA HELD DUE TO PATIENT NOT HAVING APPETITE TO EAT AND PENDING DIALYSIS
--- NOTE | 2017-03-13 18:09 | NUR ---
CALLED TABBY, SISTER, AT [phone] TO INFORM HER ABOUT PATIENT RETURN TO FLOOR AFTER PER[facility]ATH PLACEMENT AND PENDING DIALYSIS AT 1900
--- NOTE | 2017-03-13 18:46 | NUR ---
COUNTY HOME DEMONSTRATION AGENT CLOSING NOTES PATIENT IS IN BED, ALERT AND ORIENTED TO NAME AND PLACE. A. FIB 90 WITH PVC ON THE MONITOR. ALL NURSING CARE ANTICIPATED. PATIENT KEPT CLEAN ANS DRY. PATIENT IS S/P PERMCATH PLACEMENT. PENDING DIALYSIS TONIGHT. IV SITE IS INTACT AND PATENT. NO SIGNS AND SYMPTOMS OF DISTRESS OR PAIN. BED IN LOW POSITION, LOCKED AND TWO SIDE RAILS ARE UP. WILL ENDORSE TO BANQUET MANAGER NURSE FOR STACY.
[2017-03-13 20:00] VITALS: BP 121/63
--- NOTE | 2017-03-13 21:01 | NUR ---
TELE-1/[facility] [place] DIALYSIS COMPLETE. NO FLUID REMOVED. PT TOLERATED WELL. WILL CONTINUE TO MONITOR.
[2017-03-13] MEDS: ZOLPIDEM TARTRATE 5 MG TABLET PO PRN (21:29)
[2017-03-13] MEDS: SIMVASTATIN 20 MG TABLET PO SCH (21:29)
[2017-03-14] VITALS: BP 96/67
[2017-03-14 04:00] VITALS: BP 100/78
--- NOTE | 2017-03-14 04:00 | NUR ---
TELE-1/POTATO CHIP FRIER PT BECOMING MORE AGITATED. REORIENTATION UNSUCCESSFUL. PT HAD PULLED OFF TELE LEADS SEVERAL TIMES. PT PULLED IV LINE OUT. MAKING ATTEMPTS TO PULL NEW HD CATH. MICAH SHARMA CALLED NEW ORDERS RECEIVED AND CARRIED OUT. WILL CONTINUE TO MONITOR.
--- NOTE | 2017-03-14 04:04 | NUR ---
TELE-1/OPHTHALMOLOGIST RETINA SPECIALIST NEW IV LINE PLACED BY JESUS ALBERTO LOPEZ. LEFT HAND #20 GAUGE. WILL CONTINUE TO MONITOR.
[2017-03-14 07:00] LABS: BASOPHILS % (AUTO) 0.5 % (0.0-2.0); EOSINOPHILS # (AUTO) 1.5 /CMM (0.0-0.7); EOSINOPHILS % (AUTO) 17.1 % (0.0-6.0); HEMATOCRIT 28 % (39-51); HEMOGLOBIN 9.1 g/dL (13.5-17.5); LYMPHOCYTES # (AUTO) 0.7 /CMM (0.8-4.8); LYMPHOCYTES % (AUTO) 7.9 % (20.0-44.0); MEAN CORPUSCULAR HEMOGLOBIN 32 PG (26.0-33.0); MEAN CORPUSCULAR HGB CONC 33 g/dl (31.0-36.0); MEAN CORPUSCULAR VOLUME 96 fL (80-96); MONOCYTES # (AUTO) 0.5 /CMM (0.1-1.30); MONOCYTES % (AUTO) 5.8 % (2.0-12.0); NEUTROPHILS % (AUTO) 68.7 % (43.0-81.0); PLATELET COUNT (AUTO) 222 /CMM (150-450); RDW COEFFICIENT OF VARIATION 21.4 (11.5-15.0); RED BLOOD CELL COUNT(AUTO) 2.87 MIL/uL (4.5-6.0); WHITE BLOOD COUNT (AUTO) 8.7 K/uL (4.3-11.0)
--- NOTE | 2017-03-14 07:10 | NUR ---
RETORT KILN BURNER NOTE: RECEIVED PATIENT AWAKE IN BED ON SPECIALTY. PATIENT IS A&OX2 WITH SOME CONFUSION. DENIES PAIN. ON O2 3L NC, NO SOB NOTED. ON TELE WITH AFIB CONTROLLED ST HR 87. R CW HD CATH NOTED. L HAND #20 HL PATENT AND INTACT. MALIK CATH DRAINING TO GRAVITY WITH DARK RUBY. HOB ELEVATED. LEFT HAND RESTRAINT NOTED. BED LOW, LOCKED, WITH CALL LIGHT WITHIN REACH. WILL CONT TO MONITOR.
[2017-03-14 08:00] VITALS: BP 129/96
[2017-03-14] MEDS: SEVELAMER CARBONATE 0.8 GM POWD.PACK GT SCH ×3 (08:00→18:09)
[2017-03-14 08:12] LABS: CALCIUM, SERUM 7.8 mg/dL (8.5-10.1); CREATININE 2.7 mg/dL (0.6-1.3); MAGNESIUM 1.7 mg/dL (1.8-2.4); PHOSPHORUS 5.1 mg/dL (2.5-4.9); POTASSIUM 3.6 mmol/L (3.5-5.1)
[2017-03-14] MEDS: ASPIRIN EC 81 MG TABLET.DR PO SCH (09:32)
[2017-03-14] MEDS: CARVEDILOL 12.5 MG TABLET PO SCH ×2 (09:33→18:01)
[2017-03-14] MEDS: HYDROGEL DRESSING 90 GM TUBE TP SCH (09:33)
[2017-03-14] MEDS: ZINC SULFATE 220 MG CAPSULE PO SCH (09:33)
[2017-03-14] MEDS: CLOTRIMAZOLE/BETAMETASONE DIPROPIONATE 15 GM TUBE TP SCH ×2 (09:34→18:00)
--- NOTE | 2017-03-14 10:05 | NUR ---
COCOA ROASTER NOTE: PATIENT SEEN BY INFECTION CONTROL NURSE JAIRO AND CHARGE NURSE SOON. RECOMMENDED HD CATH BANDAGE CHANGE AND RASH EVAL BY CONCRETE PIPE MACHINE OPERATOR.
--- NOTE | 2017-03-14 10:10 | NUR ---
CIRCULAR SHEAR OPERATOR NOTE: DR LOVE SEEN PT AT BEDSIDE. ORDER FOR ABG. PER CHARGE NURSE, WILL ENTER ORDER.
--- NOTE | 2017-03-14 10:15 | NUR ---
HONEY PRODUCER NOTE: PER CHARGE NURSE, SOFT RESTRAINTS NOT REQUIRED.
--- NOTE | 2017-03-14 10:30 | NUR ---
SEMICONDUCTOR LAB TECHNICIAN NOTE: RT HERE FOR ABG DRAW. PER RT, WILL NOTIFY DR. LOVE OF RESULTS.
[2017-03-14 10:36] LABS: ABG BASE EXCESS 10.4 mmol/L; ABG OXYGEN SATURATION 98.2 % (92.0-98.5); ABG PCO2 79.3 mmHg (35.0-45.0); ABG PH 7.306 (7.350-7.450); ABG PO2 177.6 mmHg (75.0-100.0); COHb 0.4 % (0.5-1.5); MetHb 1.3 % (0.0-1.5); O2Hb 96.5 % (94.0-97.0); SITE, ABG Left Radial; VENT MODE, BG 3LPM N.C
--- NOTE | 2017-03-14 10:43 | NUR ---
FOUNDRY WORKER APPRENTICE NOTE: PER RT, DR LOVE WANTS PATIENT ON BIPAP.
[2017-03-14 12:00] VITALS: BP 107/65
--- NOTE | 2017-03-14 12:05 | NUR ---
AD CLERK NOTE: PER DR. CERVANTES, RASH IS FROM [place] AND WILL IMPROVE WITH DIALYSIS. NO OTHER INTERVENTION REQUIRED.
--- NOTE | 2017-03-14 13:34 | NUR ---
NITRILES LAB TECHNICIAN NOTE: DIALYSIS AT BEDSIDE.
--- NOTE | 2017-03-14 15:31 | NUR ---
SERVICE SPRINKLER HELPER NOTE: DIALYSIS NURSE REPORTED 1/2L REMOVED AND BP 111/56.
[2017-03-14 16:00] VITALS: BP 111/66
--- NOTE | 2017-03-14 16:00 | NUR ---
FIRE ALARM INSTALLER NOTE: PER RT, DR. LOVE ORDERED TO HOLD BIPAP DUE TO PATIENT CONFUSED AND REMOVING BIPAP. CONT BIPAP DURING CLOTH DYEING RANGE TENDER. WILL NOTIFY CLOTH DYEING RANGE TENDER NURSE.
[2017-03-14] MEDS ORDERED: RIVAROXABAN 10 MG TABLET PO SCH (17:00)
[2017-03-14] MEDS: SOD FERRIC GLUC 125 MG in IV NS 0.9% 100 ML IV SCH (18:00)
--- NOTE | 2017-03-14 19:30 | NUR ---
CORONER TRANSPORT TECHNICIAN NOTE: NO ACUTE CHANGES. PATIENT REMAINED ALERT WITH SOME CONFUSION. DENIES PAIN. ON O2 3L NC, NO SOB NOTED. ON TELE WITH AFIB CONTROLLED ST HR 84. R CW HD CATH NOTED. L HAND #20 HL PATENT AND INTACT. MALIK CATH DRAINING TO GRAVITY WITH DARK RUBY. HOB ELEVATED. LEFT HAND RESTRAINT NOTED. BED LOW, LOCKED, WITH CALL LIGHT WITHIN REACH. ORDERS CARRIED OUT. REPORT GIVEN TO INSPECTOR BARREL NURSE FOR STACY.
--- NOTE | 2017-03-14 19:40 | NUR ---
RN NOTES RECEIVED PT AWAKE ON BED. AOX 2 WITH PERIODS OF CONFUSION NO ACUTE RESP DISTRESS. A-FIB ON TELE MONITOR HR 802. DENIES PAIN. WARMTH TO TOUCH. IV SITE ON LEFT HAND G 20 INTACT AND PATENT. RCW HD CATH WITH CLEANED DRESSING NO ACTIVE BLEEDING NOTED. OFFLOADED EXT WITH PILLOWS. KEPT PT CLEAN AND COMFORTABLE IN BED. KEPT CLEAN AND DRY. WILL CONTINUE TO MONITOR.
[2017-03-14 20:00] VITALS: BP 105/63
[2017-03-14] MEDS: SIMVASTATIN 20 MG TABLET PO SCH (21:48)
--- NOTE | 2017-03-14 23:30 | NUR ---
RN NOTES RT PLACED BIPAP TO PATIENT TOLERATED WELL.
--- NOTE | 2017-03-14 23:31 | NUR ---
PT PLACED ON BIPAP PER MD ORDER. BIPAP FOUND AT BED SIDE ON STAND BY. ALARMS SET PER PROTOCOL AND AUDIBLE. BIPAP PLUGGED IN TO RED OUTLET, AMBU BAG AT BED SIDE. NO DISTRESS NOTED. WILL CONTINUE TO MONITOR. Addendum: 03/14/17 at 2333 by JULIEN COPELAND RT Amended: Links added.
[2017-03-15] VITALS: BP 113/72
[2017-03-15 04:00] VITALS: BP 113/72
--- NOTE | 2017-03-15 06:30 | NUR ---
RN NOTES PT ASLEEP WELL ON BED TOLERATED BIPAP AT NIGHT. BIPAP STILL ON AT THIS TIME. DENIES ANY PAIN. PT IS AOX 2. NO RESP DISTRESS. AFEBRILE. SR/ AND A- FIB NO SIGNIFICANT CHANGES. KEPT PT CLEAN AND DRY. ALL DUE MEDICINE TOLERATED WELL. REMAINED COMPLIANT WITH CARE. WILL CONTINUE PLAN OF CARE.
--- NOTE | 2017-03-15 07:00 | NUR ---
RN NOTES RECEIVED PT ON BED, A/OX 2 WITH PERIODS OF CONFUSION, OFF BIPAP BY RT AT THIS TIME , O2 SAT 99% ON 3L O2 N/C , NO ACUTE RESP DISTRESS. A-FIB ON TELE MONITOR HR IN 80'S , LEFT HAND IV SITE G 20 INTACT AND PATENT. R CW HD CATH WITH CLEANED DRESSING NO ACTIVE BLEEDING NOTED. MALIK DRAINING TO GRAVITY , SR UP x3, CALL LIGHT WITHIN EASY REACH , WILL CONTINUE TO MONITOR CLOSELY .
[2017-03-15 07:15] LABS: BASOPHILS % (AUTO) 0.4 % (0.0-2.0); EOSINOPHILS # (AUTO) 1.4 /CMM (0.0-0.7); EOSINOPHILS % (AUTO) 19.3 % (0.0-6.0); HEMATOCRIT 26 % (39-51); HEMOGLOBIN 8.5 g/dL (13.5-17.5); LYMPHOCYTES # (AUTO) 0.6 /CMM (0.8-4.8); LYMPHOCYTES % (AUTO) 7.7 % (20.0-44.0); MEAN CORPUSCULAR HEMOGLOBIN 32 PG (26.0-33.0); MEAN CORPUSCULAR HGB CONC 33 g/dl (31.0-36.0); MEAN CORPUSCULAR VOLUME 97 fL (80-96); MONOCYTES # (AUTO) 0.5 /CMM (0.1-1.30); MONOCYTES % (AUTO) 6.4 % (2.0-12.0); NEUTROPHILS # (AUTO) 4.9 /CMM (1.8-8.9); NEUTROPHILS % (AUTO) 66.2 % (43.0-81.0); PLATELET COUNT (AUTO) 184 /CMM (150-450); RDW COEFFICIENT OF VARIATION 21.4 (11.5-15.0); WHITE BLOOD COUNT (AUTO) 7.4 K/uL (4.3-11.0)
[2017-03-15 07:51] LABS: CALCIUM, SERUM 7.9 mg/dL (8.5-10.1); CREATININE 2.3 mg/dL (0.6-1.3); POTASSIUM 3.9 mmol/L (3.5-5.1)
[2017-03-15 08:00] VITALS: BP 106/70
[2017-03-15] MEDS: CARVEDILOL 12.5 MG TABLET PO SCH ×2 (08:20→17:14)
[2017-03-15] MEDS: SEVELAMER CARBONATE 0.8 GM POWD.PACK GT SCH ×3 (08:20→17:14)
[2017-03-15] MEDS: ZINC SULFATE 220 MG CAPSULE PO SCH (08:20)
[2017-03-15] MEDS: ASPIRIN EC 81 MG TABLET.DR PO SCH (08:20)
[2017-03-15] MEDS: HYDROGEL DRESSING 90 GM TUBE TP SCH (08:21)
[2017-03-15] MEDS: CLOTRIMAZOLE/BETAMETASONE DIPROPIONATE 15 GM TUBE TP SCH ×2 (08:22→17:14)
[2017-03-15 08:36] LABS: MAGNESIUM 1.6 mg/dL (1.8-2.4); PHOSPHORUS 4.3 mg/dL (2.5-4.9)
[2017-03-15] MEDS ORDERED: Magnesium 1GM/D5W 100ML PREMIX 100 ML IV SCH (11:09)
[2017-03-15 12:00] VITALS: BP 107/64
[2017-03-15 16:00] VITALS: BP 108/54
--- NOTE | 2017-03-15 16:44 | NUR ---
RN NOTES BLOODY URINE AND BLOODY SMALL SPOTS NOTED ON THE PT'S BACK , DR CERVANTES NOTIFIED . XARELTO DISCONTINUED PER MD ORDER .
--- NOTE | 2017-03-15 18:15 | NUR ---
RN NOTES VSS STABLE, RESPIRATION EVEN AND UNLABORED, NO SOB NOTED, L HAND IV SITE AND R CW HD CATH CDI, PT MEDICATED PER MD ORDER , SR UP x3, CALL LIGHT WITHIN EASY REACH, WILL ENDORSE TO SPRAY BOOTH OPERATOR NURSE FOR CONTINUITY OF CARE .
--- NOTE | 2017-03-15 19:15 | NUR ---
RN INITIAL NOTES RECEIVED PATIENT IN BED, AWAKE AND ALERT X1-2. EPISODE OF CONFUSION NOTED. PATIENT NOT IN ANY DISTRESS, DENIES ANY PAIN AND DISCOMFORT. ON 3LPM OF O2 VIA NC, RESPIRATION IS EVEN AND UNLABORED, NO DISTRESS. AFIB CONTROLLED ON TELE WITH OCCASIONAL PVCs, HR OF 80s. WITH F/C, INTACT AND DRAINING WITH HEMATURIA, CLOTS NOTED ON TUBING. L HAND G20, FLUSHED AND PATENT, ON SL. R CHESTWALL HD CATH WITH DRESSING INTACT, NO BLEEDING NOTED. PATIENT'S NEEDS ANTICIPATED AND MET. SAFETY AND COMFORT ENSURED. BED IN LOW AND LOCKED POSITION. CALL LIGHT IN REACH. WILL MONITOR.
[2017-03-15 20:00] VITALS: BP 94/45
--- NOTE | 2017-03-15 20:00 | NUR ---
RN NOTES PATIENT RESTLESS IN BED, ATTENDED TO PATIENT'S NEEDS. PATIENT OBSERVED TO BE PULLING AND SCRATCHING ON HIS R CHESTWALL HD CATHETER, DISLODGED DRESSING, WILL REDRESS SITE. PATIENT IS CONFUSED, UNABLE TO REDIRECT. PROVIDED WITH REDIRECTION AND EXPLAINED RISKS OF ACTION, TO NO AVAIL. ORDER FOR PLACEMENT OF L WRIST SOFT RESTRAINT OBTAINED. PATIENT'S SAFETY AND COMFORT ENSURED. ADEQUATE CIRCULATION AND SKIN INTEGRITY ENSURED. WILL MONITOR.
[2017-03-15] MEDS: SIMVASTATIN 20 MG TABLET PO SCH (21:32)
--- NOTE | 2017-03-15 23:30 | NUR ---
RN NOTES PATIENT PLACED ON BIPAP, TOLERATED SETTINGS WELL. WILL MONITOR.
[2017-03-16] VITALS: BP 112/68
[2017-03-16 04:00] VITALS: BP 118/82
--- NOTE | 2017-03-16 04:00 | NUR ---
RN NOTES PATIENT REFUSING BIPAP, PATIENT IN NO DISTRESS. COORDINATED WITH RT. PATIENT PLACED ON O2 VIA NC AT 3LPM. AM CARE RENDERED. WOUND TREATMENT RENDERED. KEPT CLEAN AND DRY. L WRIST SOFT RESTRAINT RELEASED INTERMITTENTLY, ON CLOSE MONITORING. CIRCULATION AND SKIN INTEGRITY CHECKED AT ALL TIMES. CALL LIGHT IN REACH.
--- NOTE | 2017-03-16 06:39 | NUR ---
RN CLOSING NOTES PATIENT WITH NO ACUTE CHANGE IN CONDITION OBSERVED OVERNIGHT. PATIENT TOLERATING O2 THERAPY, NO RESPIRATORY DISTRESS. L WRIST SOFT RESTRAINTS IN PLACE. CONTINUOUS WITH HEMATURIA. ALL DUE MEDS GIVEN ORDERED. AM LABS DRAWN. PATIENT'S NEEDS ANTICIPATED AND MET. SAFETY AND COMFORT ENSURED. BED IN LOW AND LOCKED POSITION. CALL LIGHT IN REACH. WILL ENDORSE ACCORDINGLY FOR CONTINUITY OF CARE.
[2017-03-16 06:53] LABS: BASOPHILS % (AUTO) 0.5 % (0.0-2.0); EOSINOPHILS # (AUTO) 1.1 /CMM (0.0-0.7); HEMATOCRIT 26 % (39-51); HEMOGLOBIN 8.6 g/dL (13.5-17.5); LYMPHOCYTES # (AUTO) 0.6 /CMM (0.8-4.8); LYMPHOCYTES % (AUTO) 7.5 % (20.0-44.0); MEAN CORPUSCULAR HEMOGLOBIN 32 PG (26.0-33.0); MEAN CORPUSCULAR HGB CONC 33 g/dl (31.0-36.0); MEAN CORPUSCULAR VOLUME 97 fL (80-96); MONOCYTES # (AUTO) 0.4 /CMM (0.1-1.30); MONOCYTES % (AUTO) 4.8 % (2.0-12.0); NEUTROPHILS # (AUTO) 5.8 /CMM (1.8-8.9); NEUTROPHILS % (AUTO) 73.2 % (43.0-81.0); PLATELET COUNT (AUTO) 186 /CMM (150-450); RDW COEFFICIENT OF VARIATION 21.8 (11.5-15.0); WHITE BLOOD COUNT (AUTO) 7.9 K/uL (4.3-11.0)
--- NOTE | 2017-03-16 07:05 | NUR ---
RN INITIAL NOTES RECEIVED PT OBTUNDED. ON COOL AEROSOL AT 3LPM. HOB ELEVATED. NO RESPIRATORY DISTRESS NOTED. NO SOB NOTED. NO SIGNS OF PAIN NOTED. IV LINE IN PLACE. RIGHT CHEST WALL HD CATH IN PLACE. LEFT SOFT WRIST RESTRAINT ON. NO CIRCULATORY IMPAIRMENT NOTED. GOOD CAPILLARY REFILL NOTED. FC IN PLACE. PT CLEAN AND DRY. BLE ELEVATED. WILL MONITOR.
[2017-03-16 07:17] LABS: CALCIUM, SERUM 8.2 mg/dL (8.5-10.1); CREATININE 2.4 mg/dL (0.6-1.3); MAGNESIUM 1.8 mg/dL (1.8-2.4); PHOSPHORUS 4.2 mg/dL (2.5-4.9); POTASSIUM 3.9 mmol/L (3.5-5.1)
[2017-03-16 08:00] VITALS: BP 107/80
[2017-03-16] MEDS: ASPIRIN EC 81 MG TABLET.DR PO SCH (08:09)
[2017-03-16] MEDS: ZINC SULFATE 220 MG CAPSULE PO SCH (08:09)
[2017-03-16] MEDS: SEVELAMER CARBONATE 0.8 GM POWD.PACK GT SCH ×3 (08:10→17:03)
[2017-03-16] MEDS: CARVEDILOL 12.5 MG TABLET PO SCH ×2 (08:10→17:03)
[2017-03-16] MEDS: CLOTRIMAZOLE/BETAMETASONE DIPROPIONATE 15 GM TUBE TP SCH (08:10)
[2017-03-16] MEDS: HYDROGEL DRESSING 90 GM TUBE TP SCH (08:12)
--- NOTE | 2017-03-16 09:15 | NUR ---
RN NOTES HD STARTED. NO RESPIRATORY DISTRESS NOTED. NO SOB NOTED. DENIES ANY PAIN. WILL MONITOR.
--- NOTE | 2017-03-16 11:45 | NUR ---
RN NOTES SEEN AND EXAMINED BY DR. CERVANTES. AWARE OF CURRENT LAB VALUES: HGB 8.6, HCT 26, SODIUM 143, POTASSIUM 3.9, BUN 52, CREA 2.4. DIALYSIS ONGOING, TOLERATING WELL. DISCUSSED PLAN OF CARE WITH DPOA AT BEDSIDE. ORDERED LABS IN AM.
[2017-03-16 12:00] VITALS: BP 109/61
--- NOTE | 2017-03-16 12:00 | NUR ---
RN NOTES DIALYSIS ENDED. REMOVED 2300ML. TOLERATED WELL. NO RESPIRATORY DISTRESS NOTED. NO SOB NOTED. DENIES ANY PAIN. WILL MONITOR.
[2017-03-16 16:00] VITALS: BP 103/65
--- NOTE | 2017-03-16 19:15 | NUR ---
RN INITIAL NOTES RECEIVED PATIENT IN BED, AWAKE AND ALERT X1-2. PATIENT NOT IN ANY DISTRESS, DENIES ANY PAIN AND DISCOMFORT. ON 3LPM OF HUMIDIFIED O2 VIA NC, RESPIRATION IS EVEN AND UNLABORED, NO DISTRESS. AFIB CONTROLLED ON TELE WITH OCCASIONAL PVCs, HR OF 80s. WITH F/C, HEMATURIA NOTED. L HAND G20, FLUSHED AND PATENT, ON SL. R CHESTWALL HD CATH WITH DRESSING INTACT, NO BLEEDING NOTED. L SOFT WRIST RESTRAINTS IN PLACE, CIRCULATION AND SKIN INTEGRITY ENSURED. PATIENT'S NEEDS ANTICIPATED AND MET. SAFETY AND COMFORT ENSURED. BED IN LOW AND LOCKED POSITION. CALL LIGHT IN REACH. WILL MONITOR.
[2017-03-16 20:00] VITALS: BP 125/65
[2017-03-16] MEDS: SIMVASTATIN 20 MG TABLET PO SCH (21:06)
[2017-03-17] VITALS (7 sets, daily range): BP systolic 96–134; BP diastolic 61–78
--- NOTE | 2017-03-17 06:25 | NUR ---
RN CLOSING NOTES PATIENT WITH NO ACUTE DISTRESS OBSERVED OVERNIGHT. REFUSED NOCTURNAL BIPAP STRONGLY, PATIENT MONITORED CLOSELY, ABLE TO SLEEP COMFORTABLY, NO DISTRESS. OFFERED AND EXPLAINED TO PATIENT RISK AND BENEFIT X3, TO NO AVAIL. AFIB CONTROLLED WITH OCCASIONAL PVCs. F/C IN PLACE, HEMATURIA NOTED, POOR UO, F/C FLUSHED, NOTED TO BE PATENT, NO RESISTANCE WITH FLUSHING, STILL WITH HEMATURIA AND POOR UO NOTED. WOUND TREATMENT RENDERED ORDERED, TURNED AND REPOSITIONED. PATIENT'S NEEDS ANTICIPATED AND MET. SAFETY AND COMFORT ENSURED. BED IN LOW AND LOCKED POSITION. CALL LIGHT IN REACH. WILL ENDORSE ACCORDINGLY FOR CONTINUITY OF CARE.
[2017-03-17 06:55] LABS: BASOPHILS # (AUTO) 0.1 /CMM (0.0-0.2); BASOPHILS % (AUTO) 0.7 % (0.0-2.0); EOSINOPHILS # (AUTO) 1.6 /CMM (0.0-0.7); EOSINOPHILS % (AUTO) 17.5 % (0.0-6.0); HEMATOCRIT 27 % (39-51); LYMPHOCYTES # (AUTO) 0.8 /CMM (0.8-4.8); LYMPHOCYTES % (AUTO) 8.8 % (20.0-44.0); MEAN CORPUSCULAR HEMOGLOBIN 32 PG (26.0-33.0); MEAN CORPUSCULAR HGB CONC 33 g/dl (31.0-36.0); MEAN CORPUSCULAR VOLUME 96 fL (80-96); MONOCYTES # (AUTO) 0.5 /CMM (0.1-1.30); MONOCYTES % (AUTO) 5.8 % (2.0-12.0); NEUTROPHILS # (AUTO) 6.3 /CMM (1.8-8.9); NEUTROPHILS % (AUTO) 67.2 % (43.0-81.0); PLATELET COUNT (AUTO) 192 /CMM (150-450); RDW COEFFICIENT OF VARIATION 21.5 (11.5-15.0); RED BLOOD CELL COUNT(AUTO) 2.84 MIL/uL (4.5-6.0); WHITE BLOOD COUNT (AUTO) 9.4 K/uL (4.3-11.0)
[2017-03-17 07:24] LABS: CALCIUM, SERUM 8.4 mg/dL (8.5-10.1); CREATININE 2.1 mg/dL (0.6-1.3); MAGNESIUM 1.8 mg/dL (1.8-2.4); PHOSPHORUS 3.4 mg/dL (2.5-4.9); POTASSIUM 3.7 mmol/L (3.5-5.1)
--- NOTE | 2017-03-17 07:37 | NUR ---
AM RN NOTE Received patient awake, A/O X1-2 verbally responsive. Denies any pain or discomfort at this time. On 3L/min humidified O2 via NC. No acute distress noted. On tele monitor, A-fib 86. R chest wall HD cath covered with dressing, intact. Left hand restraint in place. F/C intact and still noted in hematuria. Will continue to monitor.
[2017-03-17] MEDS: ASPIRIN EC 81 MG TABLET.DR PO SCH (08:18)
[2017-03-17] MEDS: SEVELAMER CARBONATE 0.8 GM POWD.PACK GT SCH ×3 (08:18→17:32)
[2017-03-17] MEDS: ZINC SULFATE 220 MG CAPSULE PO SCH (08:18)
[2017-03-17] MEDS: PROSOURCE / PROSTAT (PYXIS) 30 ML UDC GT SCH (08:18)
[2017-03-17] MEDS: HYDROGEL DRESSING 90 GM TUBE TP SCH (08:19)
[2017-03-17] MEDS: CARVEDILOL 12.5 MG TABLET PO SCH ×2 (08:19→17:32)
--- NOTE | 2017-03-17 10:36 | NUR ---
AM RN NOTE Pt seen by Dr. Saravia ([employer]) with new order to D/C telemetry and ok to transfer to Med/Surg.
--- NOTE | 2017-03-17 15:50 | NUR ---
AM RN NOTE Patient seen and assessed by Dr. House with new order to hold discharge and start continuous bladder irrigation due to hematuria. Hematuria in F/C bag seen by Dr. House. Called central supply and requested for supplies. Discontinued current F/C with 100cc dark hematuria output. Inserted 3 lumen F/C at this time as assisted by another nurse and Charge nurse. Will continue to monitor for the output. Pt tolerated procedure well.
--- NOTE | 2017-03-17 16:42 | NUR ---
AM RN NOTE Pt continue on continuous bladder irrigation with hematuria output 1700ml/hr and color changing to pinkish color. Will continue to monitor. Pt denies any pain or discomfort at this time.
--- NOTE | 2017-03-17 18:17 | NUR ---
AM RN NOTE Patient resting in his bed, no acute distress noted. Continue on bladder irrigation. Denies any pain or discomfort at this time. Will endorse care to next shift.
--- NOTE | 2017-03-17 20:00 | NUR ---
MS RN NOTE PT IN BED AWAKE. A/O X 1-2, CONFUSED. NO SOB NO DISTRESS OR DISCOMFORT NOTED. DENIES PAIN. ON O2 3L VIA N/C O2 SAT 98%. F/C INTACT AND PATENT DRAINING DARK PINKISH COLOR URINE. CONTINUES ON BLADER IRRIGATION. TOLERATING WELL. REPOSITION HIM FOR SKIN MANAGEMENT. SKIN PICTURES WERE TAKEN BY DAY SHIFT NURSE JERICA. PLACED THEM IN THE CHART. SIDE RAILS UP X 3 AND CALL LIGHT WITHIN REACH. VSS CONTINUE TO MONITOR HIM.
[2017-03-17] MEDS: SIMVASTATIN 20 MG TABLET PO SCH (22:31)
--- NOTE | 2017-03-17 22:34 | NUR ---
MS RN NOTE PT IS C/O PAIN ALL OVER 6/10 ALSO C/O CONSTIPATION. NORCO 1 TAB PO GIVEN FOR PAIN AND MOM 30 ML PO GIVEN FOR CONSTIPATION. CONTINUE TO MONITOR HIM.
--- NOTE | 2017-03-17 23:34 | NUR ---
MS RN NOTE PAIN SUBSIDED /, PT FALLING ASLEEP, BLADDER IRRIGATION IN PROGRESS.
[2017-03-18 04:00] VITALS: BP 120/81
--- NOTE | 2017-03-18 06:25 | NUR ---
MS RN NOTE PT IN BED AWAKE. NO DISTRESS OR DISCOMFORT NOTED. DENIES PAIN. F/C WITH CONTINUES BLADER IRRIGATION, DRAINING YELLOWISH COLOR URINE. PT IS TOLERATING IT WELL. REPOSITION HIM Q2H, KEPT HIM DRY AND CLEAN. ALL NEEDS ATTENDED. SIDE RAILS UP X 2 AND CALL LIGHT WITHIN REACH. VSS. CONTINUE TO MONITOR HER.
--- NOTE | 2017-03-18 07:00 | NUR ---
RN NOTE RECEIVED PT ON BED, A/O X 1-2 , CONFUSED, RESPIRATION EVEN AND UNLABORED, ON O2 3L O2 N/C , NO SOB NOTED, MALIK DRAINING TO GRAVITY WITH 3 WAYS BLADDER IRRIGATION , TOLERATING WELL. L HAND IV SITE AND R CW HD CATH CDI ,SIDE RAILS UP X 3 , CALL LIGHT WITHIN EASY REACH. CONTINUE TO MONITOR PT CLOSELY
[2017-03-18 07:39] LABS: CALCIUM, SERUM 8.6 mg/dL (8.5-10.1); CREATININE 2.4 mg/dL (0.6-1.3); MAGNESIUM 1.9 mg/dL (1.8-2.4); PHOSPHORUS 4.1 mg/dL (2.5-4.9); POTASSIUM 3.9 mmol/L (3.5-5.1)
[2017-03-18 08:00] VITALS: BP 120/77
[2017-03-18] MEDS: ZINC SULFATE 220 MG CAPSULE PO SCH (08:33)
[2017-03-18] MEDS: PROSOURCE / PROSTAT (PYXIS) 30 ML UDC GT SCH (08:33)
[2017-03-18] MEDS: SEVELAMER CARBONATE 0.8 GM POWD.PACK GT SCH ×3 (08:33→17:13)
[2017-03-18] MEDS: ASPIRIN EC 81 MG TABLET.DR PO SCH (08:33)
[2017-03-18] MEDS: CARVEDILOL 12.5 MG TABLET PO SCH ×2 (08:34→17:14)
[2017-03-18] MEDS: HYDROGEL DRESSING 90 GM TUBE TP SCH (08:35)
--- NOTE | 2017-03-18 12:00 | NUR ---
RN NOTES PT STABLE , NO DISTRESS NOTED.
[2017-03-18 16:00] VITALS: BP 98/71
--- NOTE | 2017-03-18 18:00 | NUR ---
RN NOTES PT STABLE , RESPIRATION EVEN AND UNLBORED, BLADDER IRRIGATION IN PROCESS , NO BLOODY URINE NOTED IN THE MALIK , MEDICATED PER MD ORDER , L HAND IV SITE CDI, SR UP x3, CALL LIGHT WITNIN EASY REACH , NO SIGNIFICANT CHANGES NOTED ON THIS SHIFT .
--- NOTE | 2017-03-18 19:30 | NUR ---
MS RN INITIAL NOTE PT RECEIVED IN BED. A/O X1-2 AND ABLE TO MAKE SOME NEEDS KNOWN. ON 3L OF O2 VIA NC AND SATURATING WELL. IV L HAND #20 FLUSHING WELL, PATENT AND CLEAN. RIGHT CHEST WALL HD CATH IN PLACE AND CLEAN. MALIK CATHETER IN PLACE AND DRAINING BY GRAVITY WITH BLADDER IRRIGATION CONNECTED. L WRIST SOFT WRIST RESTRAINT IN PLACE AND CIRCULATION, CAP REFILL CHECKED. BED ALARM ON AND BED IN LOWEST POSITION. CALL LIGHT WITHIN EASY REACH AT ALL TIMES. WILL CONTINUE TO MONITOR.
[2017-03-18 20:00] VITALS: BP 121/80
[2017-03-18] MEDS: SIMVASTATIN 20 MG TABLET PO SCH (21:40)
[2017-03-19 04:00] VITALS: BP 135/86
--- NOTE | 2017-03-19 07:04 | NUR ---
MS RN CLOSING NOTE PT REMAINED STABLE DURING SHIFT. NO ACUTE DISTRESS NOTED. KEPT CLEAN AND DRY. ALL NEEDS ATTENDED TO PROMPTLY. IV SITE PATENT AND INTACT. MALIK CATHETER IN PLACE WITH CONTINUOUS BLADDER IRRIGATION IN PLACE. CALL LIGHT WITHIN REACH. WOUND TREATMENT PERFORMED PER MD ORDER. WILL ENDORSE TO NEXT SHIFT FOR CONTINUITY OF CARE.
[2017-03-19 07:37] LABS: BASOPHILS # (AUTO) 0.1 /CMM (0.0-0.2); BASOPHILS % (AUTO) 0.7 % (0.0-2.0); EOSINOPHILS # (AUTO) 1.8 /CMM (0.0-0.7); EOSINOPHILS % (AUTO) 23.3 % (0.0-6.0); HEMATOCRIT 28 % (39-51); HEMOGLOBIN 9.2 g/dL (13.5-17.5); LYMPHOCYTES # (AUTO) 0.7 /CMM (0.8-4.8); LYMPHOCYTES % (AUTO) 8.9 % (20.0-44.0); MEAN CORPUSCULAR HEMOGLOBIN 32 PG (26.0-33.0); MEAN CORPUSCULAR HGB CONC 33 g/dl (31.0-36.0); MEAN CORPUSCULAR VOLUME 98 fL (80-96); MONOCYTES # (AUTO) 0.6 /CMM (0.1-1.30); MONOCYTES % (AUTO) 7.3 % (2.0-12.0); NEUTROPHILS # (AUTO) 4.7 /CMM (1.8-8.9); NEUTROPHILS % (AUTO) 59.8 % (43.0-81.0); PLATELET COUNT (AUTO) 187 /CMM (150-450); RDW COEFFICIENT OF VARIATION 21.4 (11.5-15.0); RED BLOOD CELL COUNT(AUTO) 2.89 MIL/uL (4.5-6.0); WHITE BLOOD COUNT (AUTO) 7.9 K/uL (4.3-11.0)
[2017-03-19 07:52] LABS: CALCIUM, SERUM 8.5 mg/dL (8.5-10.1); MAGNESIUM 1.9 mg/dL (1.8-2.4); PHOSPHORUS 3.4 mg/dL (2.5-4.9); POTASSIUM 3.9 mmol/L (3.5-5.1)
[2017-03-19 08:00] VITALS: BP 136/69
--- NOTE | 2017-03-19 08:00 | NUR ---
RN NOTES: PT RECEIVED IN STABLE CONDITION ALERT AWAKE OX2. ABLE TO MAKE NEEDS KNOWN. ON 3LPM OXYGEN NC. BREATHING PATTERN REGULAR. NO ACUTE DISTRESS NOTED. IV SITE INTACT, SALINE LOCK. RIGHT CW HD CATHETER INTACT, DRESSING INTACT & DRY. F/C INTACT DRAINING WELL, ON CONTINUES BLADDER IRRIGATION. URINE OUTPUT CLOUDY YELLOW COLOR. ASPIRATION PRECAUTIONS OBSERVED. SAFETY PRECAUTIONS OBSERVED. PATIENT DRY & CLEAN. CALL LIGHT WITHIN REACH. LEFT WRIST SOFT RESTRAINT ON FOR SAFETY. CONTINUE TO ASSES CLOSELY. WILL CONTINUE TO MONITOR.
[2017-03-19 08:34] LABS: BAND % (MANUAL) 1 % (0.0-5.0); EOSINOPHILS % (MANUAL) 25 % (0-4); LYMPHOCYTES % (MANUAL) 5 % (16-48); MONOCYTES % (MANUAL) 8 % (0-11.0); NEUTROPHILS % (MANUAL) 61 (42-76)
[2017-03-19] MEDS: ZINC SULFATE 220 MG CAPSULE PO SCH (09:02)
[2017-03-19] MEDS: SEVELAMER CARBONATE 0.8 GM POWD.PACK GT SCH ×3 (09:02→17:45)
[2017-03-19] MEDS: ASPIRIN EC 81 MG TABLET.DR PO SCH (09:03)
[2017-03-19] MEDS: PROSOURCE / PROSTAT (PYXIS) 30 ML UDC GT SCH (09:03)
[2017-03-19] MEDS: CARVEDILOL 12.5 MG TABLET PO SCH ×2 (09:03→17:47)
[2017-03-19] MEDS: HYDROGEL DRESSING 90 GM TUBE TP SCH (09:04)
[2017-03-19] MEDS ORDERED: DEXTROSE 50%-WATER 50 ML DISP.SYRIN IV PRN (12:00)
[2017-03-19] MEDS: BLOOD SUGAR DIAGNOSTIC 1 EACH STRIP IN SCH ×3 (12:56→21:36)
[2017-03-19] MEDS: INSULIN REGULAR, HUMAN 100 UNIT/ML 3 ML VIAL SQ PRN ×3 (14:01→21:41)
[2017-03-19 16:00] VITALS: BP 109/84
--- NOTE | 2017-03-19 18:32 | NUR ---
RN NOTES: PT REMAINS STABLE DURING SHIFT. NO CHANGE OF CONDITION NOTED. URINE CULTURE SPECIMEN COLLECTED & SEND TO PHARMACY. RESUME ACCU CHECK & INSULIN SLIDING SCALE. PER DR. DRAPER ORDERED. PHARMACIST PATRICIO SPOKE WITH DR. DRAPER REGARDING INSULIN & LATEX ALLERGY INTERACTION. OK TO GIVE, MONITOR CLOSELY. CONTINUE ON BLADDER IRRIGATION. SAFETY MEASURES OBSERVED. CALL LIGHT WITHIN REACH.
--- NOTE | 2017-03-19 19:08 | NUR ---
RN NOTES: IV CATHETER DISLODGED. TRIED TO PUT ANOTHER IV LINE, VERY HARD STICK. CHARGE NURSE AWARE. SPOKE WITH REVA CLEANING TO INSERT MIDLINE. WILL FOLLOW UP.
--- NOTE | 2017-03-19 19:32 | NUR ---
MS RN INITIAL NOTE PT RECEIVED IN BED. A/O X 2 AND ABLE TO MAKE SOME NEEDS KNOWN. ON 3L OF O2 VIA NC AND SATURATING WELL. BREATHING IS REGULAR, EVEN AND UNLABORED. NO IV SITE AT THIS TIME. ORDER PUT IN FOR MIDLINE LATER TODAY. RIGHT CHEST WALL HD CATH CLEAN AND INTACT. MALIK CATHETER IN PLACE WITH CONTINUOUS IRRIGATION AND DRAINING YELLOW, CLOUDY URINE BY GRAVITY. LEFT SOFT WRIST RESTRAINT ON WITH CAP REFILL AND CIRCULATION CHECKED. CALL LIGHT WITHIN REACH AT ALL TIMES. WILL CONTINUE TO MONITOR.
[2017-03-19 20:00] VITALS: BP_SYST 101; BP_SYST 104; BP_DIAS 62
[2017-03-19] MEDS: SIMVASTATIN 20 MG TABLET PO SCH (21:36)
[2017-03-20 04:00] VITALS: BP 106/66
[2017-03-20] MEDS: BLOOD SUGAR DIAGNOSTIC 1 EACH STRIP IN SCH ×2 (06:45→12:13)
[2017-03-20 07:06] LABS: BASOPHILS % (AUTO) 0.5 % (0.0-2.0); EOSINOPHILS # (AUTO) 1.7 /CMM (0.0-0.7); HEMATOCRIT 26 % (39-51); HEMOGLOBIN 8.6 g/dL (13.5-17.5); LYMPHOCYTES # (AUTO) 0.7 /CMM (0.8-4.8); LYMPHOCYTES % (AUTO) 9.1 % (20.0-44.0); MEAN CORPUSCULAR HEMOGLOBIN 32 PG (26.0-33.0); MEAN CORPUSCULAR HGB CONC 32 g/dl (31.0-36.0); MEAN CORPUSCULAR VOLUME 97 fL (80-96); MONOCYTES # (AUTO) 0.6 /CMM (0.1-1.30); MONOCYTES % (AUTO) 7.5 % (2.0-12.0); NEUTROPHILS # (AUTO) 4.8 /CMM (1.8-8.9); NEUTROPHILS % (AUTO) 60.9 % (43.0-81.0); PLATELET COUNT (AUTO) 182 /CMM (150-450); RDW COEFFICIENT OF VARIATION 21.2 (11.5-15.0); RED BLOOD CELL COUNT(AUTO) 2.72 MIL/uL (4.5-6.0); WHITE BLOOD COUNT (AUTO) 7.9 K/uL (4.3-11.0)
--- NOTE | 2017-03-20 07:30 | NUR ---
RN NOTES RECEIVED PATIENT IN BED ALERT, AWAKE, ORIENTED X2 WITH BREATHING NORMAL, EVEN AND UNLABORED. NO SOB NOTED. ON 3L O2 VIA NC, SATURATING WELL. NO ACUTE DISTRESS NOTED. [place] MIDLINE IS PATENT AND INTACT. RCW HD CATH IS INTACT. F/C IS PATENT AND INTACT, DRAINING WITH GRAVITY. NO HEMATURIA NOTED. CONT ON BLADDER IRRIGATION. KEPT CLEAN, DRY AND COMFORTABLE. ALL NEEDS ATTENDED. SAFETY MEASURE OBSERVED. CALL LIGHT WITH IN REACH. WILL CONT TO MONITOR.
--- NOTE | 2017-03-20 07:53 | NUR ---
MS RN CLOSING NOTE NO ACUTE DISTRESS NOTED. ALL NEEDS ATTENDED TO PROMPTLY. ALL SAFETY MEASURES IN PLACE. IV SITE INTACT. MALIK CATHETER IN PLACE WITH BLADDER IRRIGATION CONNECTED AND DRAINING BY GRAVITY. KEPT CLEAN AND DRY AT ALL TIMES. CALL LIGHT WITHIN EASY REACH. WILL ENDORSE TO NEXT SHIFT FOR STACY.
[2017-03-20 08:00] VITALS: BP 98/68
[2017-03-20 08:01] LABS: BAND % (MANUAL) 2 % (0.0-5.0); EOSINOPHILS % (MANUAL) 25 % (0-4); LYMPHOCYTES % (MANUAL) 8 % (16-48); MONOCYTES % (MANUAL) 3 % (0-11.0); NEUTROPHILS % (MANUAL) 62 (42-76)
[2017-03-20 09:00] VITALS: BP 100/68
[2017-03-20] MEDS: CARVEDILOL 12.5 MG TABLET PO SCH (09:00)
[2017-03-20] MEDS: SEVELAMER CARBONATE 0.8 GM POWD.PACK GT SCH ×2 (09:01→12:23)
[2017-03-20] MEDS: ASPIRIN EC 81 MG TABLET.DR PO SCH (09:26)
[2017-03-20] MEDS: ZINC SULFATE 220 MG CAPSULE PO SCH (09:26)
[2017-03-20] MEDS: PROSOURCE / PROSTAT (PYXIS) 30 ML UDC GT SCH (09:26)
[2017-03-20] MEDS: HYDROGEL DRESSING 90 GM TUBE TP SCH (09:27)
[2017-03-20] MEDS: INSULIN REGULAR, HUMAN 100 UNIT/ML 3 ML VIAL SQ PRN (12:24)
--- NOTE | 2017-03-20 15:20 | NUR ---
RN NOTES PATIENT DISCHARGED IN STABLE CONDITION WITH BREATHING NORMAL, EVEN AND UNLABORED. NO SOB NOTED. NO ACUTE DISTRESS NOTED. REPORT CALLED AND GIVEN TO BRETT RAMON LVN IN SNF. DISCHARGE INSTRUCTION GIVEN WITH FEEDBACK, UNDERSTOOD WELL. KEPT CLEAN, DRY AND COMFORTABLE. PATIENT LEFT VIA AMBULANCE IN STABLE CONDITION.
== END 2017-03-20 15:26 | DRG 291 ==
LOC: ER 18:21 → TELE 20:25 → UNDOADMIN 20:25 → TELE-TD 20:25 → TELE1 03-08 13:10 → TELE-TD 03-14 18:34 → TELE1 03-15 13:22 → MEDSG1 03-17 10:34
PROVIDERS: ADMIT Family Medicine; ATTEND Family Medicine
PROC: 5A1D60Z (ICD-10-PCS; 2017-03-13)
PROC: 05HM33Z Insertion of Infusion Device into Right Internal Jugular Vein, Percutaneous Approach (ICD-10-PCS; 2017-03-14)
PROC: B513YZA Fluoroscopy of Right Jugular Veins using Other Contrast, Guidance (ICD-10-PCS; 2017-03-14)
PROC: 5A09357 Assistance with Respiratory Ventilation, Less than 24 Consecutive Hours, Continuous Positive Airway Pressure (ICD-10-PCS; principal; 2017-03-16)
PROC: 05H533Z Insertion of Infusion Device into Right Subclavian Vein, Percutaneous Approach (ICD-10-PCS; 2017-03-19)
DX: I13.2 Hypertensive heart and chronic kidney disease with heart failure and with stage 5 chronic kidney disease, or end stage renal disease (principal); N17.0 Acute kidney failure with tubular necrosis; G92 Toxic encephalopathy; L89.153 Pressure ulcer of sacral region, stage 3; E11.21 Type 2 diabetes mellitus with diabetic nephropathy; D68.59 Other primary thrombophilia; N18.5 Chronic kidney disease, stage 5; R53.2 Functional quadriplegia; E66.2 Morbid (severe) obesity with alveolar hypoventilation; D62 Acute posthemorrhagic anemia; I69.351 Hemiplegia and hemiparesis following cerebral infarction affecting right dominant side; I50.22 Chronic systolic (congestive) heart failure; E11.22 Type 2 diabetes mellitus with diabetic chronic kidney disease; I67.2 Cerebral atherosclerosis; I48.91 Unspecified atrial fibrillation; E87.5 Hyperkalemia; B86 Scabies; M81.0 Age-related osteoporosis without current pathological fracture; M10.9 Gout, unspecified; Z88.8 Allergy status to other drugs, medicaments and biological substances; Z91.041 Radiographic dye allergy status; Z91.040 Latex allergy status; Z66 Do not resuscitate; Z87.891 Personal history of nicotine dependence; Z99.2 Dependence on renal dialysis; K21.9 Gastro-esophageal reflux disease without esophagitis; E78.5 Hyperlipidemia, unspecified; D63.8 Anemia in other chronic diseases classified elsewhere; E83.39 Other disorders of phosphorus metabolism; Z79.4 Long term (current) use of insulin; Z79.84 Long term (current) use of oral hypoglycemic drugs; L30.9 Dermatitis, unspecified; Z68.39 Body mass index [BMI] 39.0-39.9, adult
CPT/HCPCS: 36415; 36600; 70450-TC; 71010-TC; 76770-TC; 76856-TC; 80048-TC; 80053-TC; 80061-TC; 80074; 80076-TC; 82272-TC; 82570-TC; 82803-TC; 82962-TC; 83540-TC; 83735-TC; 83880; 84100-TC; 84155-TC; 84300-TC; 84484-TC; 85025-TC; 85610-TC; 85730-TC; 86704; 86705; 86706; 86803; 87081-TC; 87086-TC; 87186-TC; 87340; 90935-TC; 93307-TC; 93970-TC; 94799-TC; A4216; A4217; A4606; A6248; A6253; A6402; A6403; C1750; G0480; J0885; J1644; J1815; J1940; J2001; J2704; J2916; J3475; J3490; J7030; J7060; Z7610